=== PATIENT | female | born 2000 | race Caucasian/White ===

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

== ENCOUNTER 2021-10-03 08:28 | Emergency (ER) | payer SELFPAY ==
[2021-10-03 08:37] VITALS: BP 121/69; PULSE 78; RESP 16; TEMP 36.4; O2SAT 100
--- NOTE | 2021-10-03 09:06 | ED.FEMALEGU ---
HPI - Female Genitourinary General Chief complaint: Urogenital-Female Stated complaint: UTI Time Seen by Provider: 10/03/21 09:18 Source: patient and RN notes reviewed Mode of arrival: ambulatory Limitations: no limitations History of Present Illness HPI Narrative: 21-year-old female presents with concern for urinary tract infection. She reports 3-day history of tingling with urination, urine frequency, urine urgency, bilateral low back pain, low abdominal pain. She denies any OTC remedies. She denies body aches, chills, sweats. Reports history of UTI MD elicited complaint: UTI Related Data Allergies Allergy/AdvReac Type Severity Reaction Status Date / Time sulfamethoxazole Allergy Rash Verified 10/03/21 08:46 [From Bactrim] trimethoprim [From Bactrim] Allergy Rash Verified 10/03/21 08:46 Review of Systems Review of Systems: CONSTITUTIONAL: Denies malaise, chills, sweats, or fever. CARDIOVASCULAR: Denies chest pain, palpitations, or edema. RESPIRATORY: Denies cough or dyspnea. GASTROINTESTINAL: De reports lower abdominal pain. Denies nausea, vomiting, diarrhea GENITOURINARY: Reports dysuria, frequency, urgency. Denies hematuria. SKIN: Denies rash or itching. MUSCULOSKELETAL: Reports bilateral low back pain. Denies myalgia. All systems reviewed & are unremarkable except as noted in HPI and below PMFSH Social History Social History (Updated 03/31/19 @ 11:10 by Maricruz Benavides, SENIOR SYSTEMS PROGRAMMER) Smoking status: Current every day smoker Tobacco type: e-cigarettes/vaping Alcohol intake: never Substance use: never Gender identity (if verbalized by the patient): Female Comments At time of signature, agree with nursing past medical, surgical, social and family history. There is no relevant family history pertinent to the presenting complaint Exam Narrative: GENERAL: Well-appearing, well-nourished, and in no acute distress. HEAD: Normocephalic. EYES: PERRLA, conjunctivae clear. NECK: Supple. No lymphadenopathy CHEST: Clear to auscultation. No respiratory distress. HEART: Regular rate and rhythm. ABDOMEN: Mild bilateral lower quadrant tenderness, otherwise soft, nondistended, normal active bowel sounds, no palpable or pulsatile masses, no guarding. No CVA tenderness SKIN: Warm, dry, no rash. NEURO: Alert and oriented x3. PSYCH: Normal mood and affect Course Course Emergency Course: Patient is aware of diagnosis, understands and agrees to treatment plan. Anticipatory guidance given. Patient agrees to follow-up as directed and is aware of reasons to seek care at the emergency department. Portions of this record may have been created with voice recognition software Level of Care: Express Care Visit Vital Signs Vital signs: Vital Signs Temperature 97.5 F L 10/03/21 08:37 Pulse Rate 78 10/03/21 08:37 Respiratory Rate 16 10/03/21 08:37 Blood Pressure 121/69 10/03/21 08:37 Pulse Oximetry 100 10/03/21 08:37 Oxygen Delivery Room Air 10/03/21 08:37 Temperature 97.5 F L 10/03/21 08:37 Pulse Rate 78 10/03/21 08:37 Respiratory Rate 16 10/03/21 08:37 Blood Pressure 121/69 10/03/21 08:37 Pulse Oximetry 100 10/03/21 08:37 Oxygen Delivery Room Air 10/03/21 08:37 Reviewed. MDM - Female Genitourinary MDM Narrative Medical decision making narrative: Exam findings and UA show no acute concerns or changes; patient is non-toxic appearing and is in no distress. Patient is appropriate for outpatient treatment and follow-up. Differential Diagnosis Differential diagnosis: Likely urinary tract infection and cystitis Lab Data Labs: Urine Glucose Trace Reference Range: Negative Urine Bilirubin Negative Reference Range: Negative Urine Ketone Negative Reference Range: Negative Urin
== END 2021-10-03 09:31 | disposition home or self-care (01) ==
PROVIDERS: Emergency Provider Nurse Practitioner
DX: N39.0 Urinary tract infection, site not specified (principal); F17.290 Nicotine dependence, other tobacco product, uncomplicated
CPT/HCPCS: 81003; 87077; 87086; 87186; 99213; G0463

== ENCOUNTER 2022-05-20 12:13 | Emergency (ER) | payer MEDICAID, SELFPAY ==
--- NOTE | 2022-05-20 12:19 | ED.URI ---
HPI - URI/Sore Throat General Chief Complaint: Upper Respiratory Infection Stated Complaint: Sore Throat Time Seen by Provider: 05/20/22 12:20 Source: patient Mode of arrival: ambulatory Limitations: no limitations History of Present Illness HPI Narrative: Jadyn is a 21-year-old female patient presenting to the clinic today with complaints of a sore throat and nasal congestion x2 days. She denies any fever or chills. She has a nonproductive cough. States that she may have strep. No known exposure to anyone with COVID, flu, or strep. MD elicited complaint: cough, sore throat and nasal congestion Related Data Allergies Allergy/AdvReac Type Severity Reaction Status Date / Time sulfamethoxazole Allergy Rash Verified 05/20/22 12:18 [From Bactrim] trimethoprim [From Bactrim] Allergy Rash Verified 05/20/22 12:18 Review of Systems Review of Systems: Pertinent positives per HPI. Patient denies any fever, chills, rash, headache, visual changes, dizziness, shortness of breath, chest pain, palpitations, nausea, vomiting, diarrhea, constipation, abdominal pain, or any urinary issues. [facility] Social History Social History (Updated 03/31/19 @ 11:10 by Maricruz Benavides, SHELL MOLD BONDING MACHINE OPERATOR) Smoking status: Current every day smoker Tobacco type: e-cigarettes/vaping Alcohol intake: never Substance use: never Living arrangements: with family Occupation/Education: student Gender identity (if verbalized by the patient): Female Comments At the time of my signature, I reviewed and agree with the nursing past medical, surgical, social, and family history. There is no relevant family history pertinent to the patient complaint. Exam Narrative: General: Well-developed, well nourished, in no apparent distress Head: Normocephalic, atraumatic Eyes: Pupils equally round and reactive to light bilaterally, EOM intact, sclera and conjunctive clear, no discharge, lids normal Ears: TMs intact and congested, ear canals clear, no drainage, grossly hearing normal. Nose: Nares patent, clear nasal discharge, no inflammation, no sinus tenderness. Mouth: Oral pharynx without lesions or masses, good dentition, MMM. Oropharynx red with bilateral tonsillar enlargement Neck: Supple, trachea midline, mild enlargement of anterior cervical nodes, no thyroid masses or goiter palpable. Cardio: Regular rate and rhythm, s1 and s2 normal, no murmur appreciated. Resp: Clear to auscultation bilaterally, no rhonchi, rales, wheezing or rubs Course Course Emergency Course: Portions of this record may have been created with voice recognition software. Level of Care: Express Care Visit Vital Signs Vital signs: Vital signs reviewed MDM - URI/Sore Throat MDM Narrative Medical decision making narrative: At the time of visit patient is resting comfortably on the exam table. Strep screen was obtained Differential Diagnosis Differential diagnosis: Likely upper respiratory infection, sinusitis, viral infection, influenza, pharyngitis and other (COVID) Discharge Plan Discharge Clinical Impression: Acute streptococcal pharyngitis Patient Disposition: Home, Self-Care Condition: Stable Instructions: Antibiotic Form, Strep Throat (ED) Additional Instructions: Strep screen was positive in the clinic today Take prescription medications only as prescribed-amoxicillin Change your toothbrush in 24 hours after initiation of antibiotic Increase fluids and stay well hydrated Tylenol/motrin for pain/fever Flonase and OTC antihistamines as directed Vicks vapor rub to open sinuses Sinus rinses for congestion Cepacol spray, cough drops, throat lozenges, warm tea with honey/lemon, gargle salt water to soothe throat BRAT diet for diarrhea Clear liquids x 24 hours then advance as tolerated for nausea/vomiting Go to the ED if you develop a worsening in your condition- high fever not controlled by Tylenol or Motrin, dehydration, weakness, let
[2022-05-20 12:20] VITALS: BP 127/94; PULSE 87; RESP 12; TEMP 36.8; O2SAT 99
== END 2022-05-20 12:42 | disposition home or self-care (01) ==
PROVIDERS: Emergency Provider Nurse Practitioner Family
DX: J02.0 Streptococcal pharyngitis (principal); F17.290 Nicotine dependence, other tobacco product, uncomplicated
CPT/HCPCS: 87880; 99213; G0463

== ENCOUNTER 2023-04-13 14:12 | Emergency (ER) | payer OTHER, SELFPAY ==
[2023-04-13 14:29] VITALS: BP 108/70; PULSE 99; RESP 16; TEMP 37.2; O2SAT 100
--- NOTE | 2023-04-13 14:39 | ED.URI ---
HPI - URI/Sore Throat General Chief Complaint: Upper Respiratory Infection Stated Complaint: COVID exposure Time Seen by Provider: 04/13/23 15:09 Source: patient, RN notes reviewed and old records reviewed Mode of arrival: ambulatory Limitations: no limitations History of Present Illness HPI Narrative: 22-year-old female presents to the [facility] with complaints of sinus congestion, runny nose that started on Wednesday. Reports COVID exposure recently Denies fevers. Reports intermittent nausea Last menstrual period started 2 days ago Has taken Tylenol Requesting a work note Related Data Allergies Allergy/AdvReac Type Severity Reaction Status Date / Time sulfamethoxazole Allergy Rash Verified 05/20/22 12:18 [From Bactrim] trimethoprim [From Bactrim] Allergy Rash Verified 05/20/22 12:18 Review of Systems Review of Systems: All systems reviewed & are unremarkable except as noted in HPI and below Constitutional: Constitutional: Reports no additional constitutional complaints Eyes: Eyes: Reports no additional eye complaints ENT: Reports as per HPI Cardiovascular: Cardiovascular: Reports no additional cardiovascular complaints, Denies chest pain and Denies dyspnea Respiratory: Respiratory: Reports no additional respiratory complaints, Denies chest congestion, Denies cough and Denies dyspnea Gastrointestinal: Gastrointestinal: Reports no additional gastrointestinal complaints, Denies abdominal pain, Denies nausea and Denies vomiting Musculoskeletal: Musculoskeletal: Reports no additional musculoskeletal complaints Integumentary/Breasts: Skin/Breast: Reports system reviewed and no additional complaints, except as docu Neurologic: Reports system reviewed and no additional complaints, except as documented Psychiatric: Psychiatric: Reports no additional psychiatric complaints Allergic/Immunologic: Allergic/Immunologic: Reports no additional allergic/immunologic complaints PMFSH Social History Social History Smoking status: Current every day smoker Tobacco type: e-cigarettes/vaping Alcohol intake: never Substance use: never Living arrangements: with family Occupation/Education: student Gender identity (if verbalized by the patient): Female Comments At the time of my signature, I reviewed and agree with the nursing past medical, surgical, social, and family history. There is no relevant family history pertinent to the patient complaint. Exam Const: General: cooperative, healthy appearing, comfortable, no acute distress, well developed, alert and well nourished Nutritional Appearance: well nourished Orientation/consciousness: patient oriented x3 Limitations: no limitations HENMT: Head: normal to inspection Ears: hearing grossly normal bilaterally, external ears normal, TM's normal bilaterally, EAC's normal, mastoids normal and no periauricular adenopathy Face/Nose/Sinus: Normal external nose present, Normal nares present, Normal nasal mucous membranes and turbinates present, normal facial exam and face symmetric Face and sinus: normal facial exam and face symmetric Mouth: Yes Normal oral and palatal mucosa present, Yes lip normal and Yes moist mucous membranes Throat: posterior oropharynx normal, uvula midline and postnasal drainage (Large amounts thick) Eyes: General: appearance normal, both eyes and all related structures Alignment and Position: alignment normal Periorbital: periorbital findings normal Pupils: Equal, round and reactive pupils present EOM: EOMs intact bilaterally Neck: Neck: normal visual inspection, full ROM, no lymphadenopathy and no meningeal signs Chest: Chest palpation & inspection: normal inspection of the chest Resp: Effort & Inspection: normal respiratory effort and able to speak in complete sentences Auscultation: clear to auscultation bilaterally, no crackles, no rales, no rhonchi and no wheezes Cardio: Rate: regula
== END 2023-04-13 15:25 | disposition home or self-care (01) ==
PROVIDERS: Emergency Provider Nurse Practitioner
DX: J06.9 Acute upper respiratory infection, unspecified (principal); R09.82 Postnasal drip; F17.290 Nicotine dependence, other tobacco product, uncomplicated; Z20.822 Contact with and (suspected) exposure to COVID-19
CPT/HCPCS: 87426; 87804; 99213; G0463

== ENCOUNTER 2023-06-30 12:31 | Outpatient (CLI) | payer OTHER, SELFPAY | END 2023-06-30 12:32 | disposition home or self-care (01) | PROVIDERS: Visit Provider Obstetrics & Gynecology | DX: O36.80X9 Pregnancy with inconclusive fetal viability, other fetus (principal); Z3A.00 Weeks of gestation of pregnancy not specified | CPT/HCPCS: 36415; 84702 ==

== ENCOUNTER 2024-02-15 06:25 | Inpatient (IN) | payer OTHER, SELFPAY ==
[2024-02-15] VITALS (126 sets, daily range): BP systolic 101–141; BP diastolic 51–98; PULSE 74–133; TEMP 36.2–36.6; O2SAT 99–100; BMI 32.0
--- OUTSIDE RECORDS SUMMARY | 2024-02-15 06:46 | XMS_ITS | Continuity of Care Document ---
Author Organization [facility] Address [address] [place] [address] Assessment No assessment recorded. Plan of Treatment Reminders Order Date Submit Date Provider Last Modified By Organization Details Last Modified Time Details Appointments INDUCTION 2023 07:00A M LINDA DUNN MD Not available Not available Not available Lab None recorded. Referral None recorded. Procedures None recorded. Surgeries None recorded. Imaging US, obstetric , follow-up 2023 024 [email or web address] [facility], [address], [place], [address], 02/08/2024 21:47:15 Medication Orders None recorded. Patient TargetsNo targets recorded. Patient InstructionsNo instructions recorded. Reason for Referral None Reported. Results Created Date Observation Date Name Description Value Unit Range Abnormal Flag Note LastModifiedBy Organization Detail LastModifiedTime 08/09/19 24 08/09/2023 US, obste tric, nucha l trans lucen cy No observ ation record ed. [email or web address] [facility] [address], [place], [address], 08/09/2023 13:09:26 08/09/19 24 08/09/2023 US, obste tric, nucha l trans lucen cy No observ ation record ed. ZULEYKA [facility] [address], [place], [address], 08/11/2023 08:08:19 10/11/19 24 10/11/2023 US, obste tric, 2nd or 3rd trime ster No observ ation record ed. [email or web address] [facility] [address], [place], [address], 10/11/2023 12:59:17 10/11/19 24 10/11/2023 US, obste tric, 2nd or 3rd trime ster No observ ation record ed. [email or web address] [address] [address], [place], [address], 10/11/2023 19:52:11 11/12/19 24 11/12/2023 US, obste tric, follo w-up No observ ation record ed. [email or web address] [facility] [address], [place], [address], 11/12/2023 16:47:39 11/12/19 24 11/12/2023 US, obste tric, follo w-up No observ ation record ed. ZULEYKA [facility] [address], [place], [address], 11/15/2023 12:08:32 12/09/19 24 12/09/2023 US, obste tric, follo w-up No observ ation record ed. [email or web address] [facility] [address], [place], [address], 12/09/2023 12:55:34 12/09/19 24 12/09/2023 US, obste tric, follo w-up No observ ation record ed. ZULEYKA [address] [address], [place], [address], 12/10/2023 10:24:16 01/04/2001/04/2024 US, obste tric, follo w-up No observ ation record ed. [email or web address] [facility] [address], [place], [address], 01/04/2024 13:22:53 01/04/2001/04/2024 US, obste tric, follo w-up No observ ation record ed. [email or web address] [address] [address], [place], [address], 01/10/2024 12:19:04 02/08/20 24 02/08/2024 US, obste tric, follo w-up No observ ation record ed. [email or web address] [facility] [address], [place], [address], 02/08/2024 13:03:42 02/08/20 24 02/08/2024 US, obste tric, follo w-up No observ ation record ed. [email or web address] [address] [address], [place], [address], 02/08/2024 21:47:09 Result Notes None recorded. Problems Name Problem SNOMED Code Status Onset Date Resolution Date Notes Provider Name and Address Organization Details Recorded Time Mixed anxiety and depressive disorder 423449504 Active 2023 Amber christensen, [facility] 4 10:43:00 88374054 Active 2023 Amber christensen, [facility] 4 10:43:50 Mixed anxiety and depressive disorder 458670287 Active 2023 Amber christensen, [facility] 4 10:43:00 Marginal insertion of umbilical cord 04235509 Active Dameon Yepez MD [address], [place], [address], [facility] 4 18:24:08 Anemia 564837434 Active 2023 1 tab slowfe daily Pablo christensen, [facility] 4 09:57:31 Problem Notes None recorded. Procedures Surgical History Date Name Laterality Status Provider Name and Address Organization Details Recorded Time 05/18/2023 Date of Last Pap Smear completed Radha Ward [facility] 07/12/2023 10:17:42 Imaging Results Imaging Date Name Status LastModified by Organiz ation Details LastModified Time 02/08/2024 US, obstetric, follow-up completed [email or web address] [facility] [address], [place], [address], 02/08/2024 13:03:42 02/08/2024 US, obstetric, follow-up completed [email or web address] [address], [place], [address], 02/08/2024 21:47:09 Procedure Notes None recorded. Medical Equipment None Reported. Allergies Allergen ID Allergen Name Allergen Category Reaction Reaction Severity Criticality Documentation Date Start Date Code Code System Note Provider Name and Address Organization Details Recorded Time 03291 Bactrim medicatio n rash moderate Not available 07/12/2023 05233 9 [facility], [facility] 10:17:34 Medications Name Sig Start Date Stop Date Status Note LastModified by Organization Details LastModified Time Prescript ion - Prior Authoriza tion Request active Not Available Not Available Not Available trazodone 50 mg tablet take 1 tablet by oral route 3 times every day after meals 07/11 completed Prescrib ed Elsewher e: Yes Loca tion: [facility] odify By: nadege Tobias ncounter DateTime : 04/27/19 18 10:45:00 AM Not Available Not Available Not Available potassium gluconate 2.5 mEq tablet 07/11 completed Prescrib ed Elsewher e: Yes Loca tion: [facility] odify By: lin Tobias ncounter DateTime : 02/12/20 17 02:30:00 PM Not Available Not Available Not Available ibuprofen 800 mg tablet TAKE 1 TABLET BY MOUTH EVERY 8 TO 10 hours NEEDED 07/11 completed Not Available Not Available Not Available fluconazo le 150 mg tablet active Not Available Not Available Not Available Claritin 10 mg tablet take 1 tablet by oral route every day 07/11 completed Prescrib ed Elsewher e: Yes Loca tion: Dusty to[facility] odify By: lin ansari DateTime : 02/12/20 17 02:30:00 PM Not Available Not Available Not Available phenazopy ridine 200 mg tablet TAKE 1 TABLET BY MOUTH EVERY 8 HOURS NEEDED 07/11 completed Not Available Not Available Not Available clotrimaz ole 1 % vaginal cream insert 1 applicat orful vaginall y NIGHTLY FOR 7 DAYS 08/08 completed Not Available Not Available Not Available metronida zole 500 mg tablet TAKE ONE TABLET BY MOUTH TWICE DAILY 07/11 completed Not Available Not Available Not Available ondansetr on 8 mg disintegr ating tablet active Not Available Not Available Not Available Ritalin 10 mg tablet take 1 tablet by oral route 2 times every day 07/11 completed Prescrib ed Elsewher e: Yes Loca tion: Dusty [facility] odify By: lin ansari DateTime : 02/12/20 17 02:30:00 PM Not Available Not Available Not Available cephalexi n 500 mg capsule TAKE ONE CAPSULE BY MOUTH TWICE DAILY FOR 7 DAYS 01/20 completed Not Available Not Available Not Available clotrimaz ole-betam ethasone 1 %-0.05 % topical cream APPLY TO THE AFFECTED AREA(S) TWICE DAILY FOR 2 WEEKS 11/11 completed Not Available Not Available Not Available ondansetr on 4 mg disintegr ating tablet dissolve one TABLET UNDER THE TONGUE EVERY 6 HOURS NEEDED 07/11 completed Not Available Not Available Not Available sertralin e 50 mg tablet active Not Available Not Available Not Available nitrofura ntoin monohydra te/macroc rystals 100 mg capsule Take 1 capsule every day by oral route. active Not Available Not Available No t Available biotin 1 mg tablet 07/11 completed Prescrib ed Elsewher e: Yes Loca [facility]: [facility] odify By: lin ansari DateTime : 02/12/20 17 02:30:00 PM Not Available Not Available Not Available Iron (ferrous sulfate) 2023 active Not Available Not Available Not Avai lable Zyrtec 10 mg capsule active Not Available Not Available Not Available One A Day Women's DHA active Not Available Not Available Not Available 28 mg iron-800 mcg tablet TAKE 1 TABLET BY MOUTH DAILY 07/11 completed Not Available Not Available Not Available Vitals Date Recorded Body height Body mass index (BMI) Body weight Systolic blood pressure Diastolic blood pressure Provider Name and Address Organization Details Last Updated DateTime 02/08/2024 161.29 cm 30.3 kg/m2 29092.07 g 116 mm[Hg] 76 mm[Hg] Tasha Abdalla [facility] 10:39:21 Social History Question Answer Notes LastModified by Organizat ion Details LastModified Time Tobacco Smoking Status Current Every Day Smoker Radha Ed christensen, [facility] 07/12/2023 10:31:12 What Is Your Level Of Alcohol Consumption? None Information not available 07/12/2023 If You Are , What Was Your Level Of Alcohol Consumption Prior To ? Occasional [email or web address] Information not available 10/11/2023 How Many Years Have You Consumed Alcohol? 2 Information not available 07/12/2023 Are You Blind Or Do You Have Difficulty Seeing? No Information not available 07/12/2023 What Is Your Level Of Caffeine Consumption? None Information not available 07/12/2023 How Much Tobacco Do You Chew? None Information not available 07/12/2023 In The 14 Days Before Symptom Onset, Have You Had Close Contact With A Laboratory-confir med COVID-19 While That Case Was Ill? No Information not available 07/12/2023 In The 14 Days Before Symptom Onset, Have You Had Close Contact With A Person Who Is Under Investigation For COVID-19 While That Person Was Ill? No Information not available 07/12/2023 Have You Been To An Area Known To Be High Risk For COVID-19? No Information not available 07/12/2023 Are You Deaf Or Do You Have Serious Difficulty Hearing? No Information not available 07/12/2023 What Type Of Diet Are You Following? REGULAR Information not available 07/12/2023 What Is The Highest Grade Or Level Of School You Have Completed Or The Highest Degree You Have Received? [id number] Information not available 07/12/2023 What Is Your Occupation? Information not available 07/12/2023 Are There Any Guns Present In Your Home? No Information not available 07/12/2023 Do You Use Protection During Sex? No Information not available 07/12/2023 Do You Use Your Seat Belt Or Car Seat Routinely? Yes Information not available 07/12/2023 Do You Have Smoke And Carbon Monoxide Detectors In Your Home? Yes Information not available 07/12/2023 At What Age Did You Start Smoking Tobacco? 17 Information not available 07/12/2023 How Much Tobacco Do You Smoke? 1 PPW Information not available 09/06/2023 Do You Feel Stressed (tense, Restless, Nervous, Or Anxious, Or Unable To Sleep At Night)? [id number] Information not available 07/12/2023 Do You Use Any Illicit Or Recreational Drugs? No Information not available 07/12/2023 Do You Use Sunscreen Routinely? Yes Information not available 07/12/2023 How Many Years Have You Smoked Tobacco? 7 Information not available 07/12/2023 Have You Used IV Drugs? No Information not available 07/12/2023 Sex: Unknown Functional Status Question Answer Note LastModified by Organizat ion Details LastModified Time Do you have difficulty walking or climbing stairs? No Information not available 07/12/2023 Are you able to walk? YESWOREST Information not available 07/12/2023 Are you able to care for yourself? Yes Information not available 07/12/2023 Do you have difficulty dressing or bathing? No Information not available 07/12/2023 What is your exercise level? Occasional Information not available 07/12/2023 Mental Status None recorded. Family History Relationship Description Onset Age of this Age Resolved Age Notes LastModified by Organization Details LastModified Time Maternal Grandmother Anemia Not available 2023 10:30:10 Father Diabetes mellitus Not available 2023 10:30:17 Father Hypertensive disorder Not available 2023 10:30:33 Father Heart disease CHF [email or web address] Not available 09/05 15:57:10 Father Hypercholest erolemia [email or web address] Not available 09/05 15:57:24 Maternal Grandfather Hypertensive disorder Not available 2023 10:30:33 Maternal Grandfather Malignant tumor of prostate [email or web address] Not available 2023 09:56:27 Maternal Grandfather Hypercholest erolemia [email or web address] Not available 09/05 15:57:24 Medical History Condition Response Allergies (Food, seasonal, environmental ) Y Other N Breast Cancer N Drug/Latex Allergies/Reactions N Blood Transfusion N Dermatologic Disorders N Lung Disease N Defects or Inherited Disease N Breast Problem N Gestational Diabetes N Hematologic disorders N Anesthesia Complications N History of STI Y Deep Vein Thrombosis N Polycystic ovary syndrome N Anxiety Disorder Y Autoimmune disease N Arthritis N Infertility N Polyps N Acid Reflux (GERD) N History of abnormal pap N Cancer N Stroke N Varicosities N Neurologic/Epilepsy N Endometriosis N High Cholesterol N Headaches N Fibromyalgia N Kidney Disease N Heart Problems N Kidney or Bladder Problems N Thyroid Problems N GI Problems N Eating Disorder N Anemia N Art (IVF or FET) N Psychiatric Illness N Ovarian Cancer N Diabetes N Pulmonary (TB, Asthma) N Hepatitis/Liver Disease N No Past Medical History N Eczema N Urinary Tract Infection N Abuse/Domestic Violence N Asthma N Trauma/Violence N Depression/ depression Y Heart Disease N Pre-Eclampsia N Hypertension N Osteoporosis N Thrombophilias N Gynecological History Statement/Question Response Date of Last Mammogram Date of LMP 05/15/2023 On BCP's at Conception? N N Was last menstrual period normal Y STIs/STDs Y HPV Vaccine N Duration of Flow (days) 5 Current Control Method Date of control 08/29/2022 Frequency of Cycle (Q days) 28 Sexually Active? Y N/A Menses Monthly Y Date of DEXA bone scan Age of first menstrual cycle 15 Date of Last Pap Smear 05/18/2023 Sexual Problems? N LMP Approximate N Obstetrics History GPAL:G 1 P 0 0 0 0 Type Value Living 0 Total 1 Past Encounters Encounter ID Performer Location Encounter Start Date Encounter Closed Date Diagnosis/Indication Diagnosis SNOMED-CT Code Diagnosis ICD10 Code [id number] Dameon Yepez MD [facility] [address] [address] 01/21/2024 16:07:49 01/25/2024 01:13:38 Pain in pelvis 01357739 R10.2 Urinary tr act infectious disease 54717021 N39.0 [id number] LINDA DUNN MD [facility] [address] [address] 01/25/2024 16:01:04 01/25/2024 16:48:54 Mixed anxiety and depressive disorder 639175774 F41.8 Anemia of 2732003 O99.019 Gestation period, 36 weeks 14813947 Z3A.36 [id number] LINDA DUNN MD [facility] [address],[place] [address] 01/31/2024 15:08:20 01/31/2024 16:37:00 Marginal insertion of umbilical cord 77561363 O43.129 Mixed anxi ety and depressive disorder 050607380 F41.8 Gestation period, 37 weeks 35588297 Z3A.37 [id number] Pina De La O [facility] [address],[place] [address] 02/08/2024 09:56:19 02/08/2024 10:43:10 Placental condition affecting management of mother 022891278 O43.103 Z3A.38 [id number] LINDA DUNN MD [facility] [address],[place] [address] 02/08/2024 09:56:41 02/08/2024 11:00:21 Mixed anxiety and depressive disorder 071779233 F41.8 Anemia of 2733 2003 O99.019 Marginal i nsertion of umbilical cord 00235670 O43.129 Gestation period, 38 weeks 04657738 Z3A.38 Health Concerns Section Related Observation LastModified by Organization Detai ls LastModified Time None Recorded Concern Status LastModified by Organization Details LastModified Time None Recorded Payers Encounter Date Sequence Insurance Name Policy Number Policy Mcdonald Covered Member ID Mcdonald Member ID Guarantor Name 02/08/2024 1 [facility] - DOS ON OR AFTER 20 (MEDICAID REPLACEMENT - HMO) Alma Vinson [id number] Alma Vinson OBGyn Episode Ob Episode Information Episode Created Date Number of Fetuses Patient Bloodtype Patient rh Status Prepregnancy Weight lbs Domestic Partner Domestic Partner Phone Father Name 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 Status 08/09/19 24 1 O Positive [address] OPEN Fetus Data First Name Last Name Admitted to NICU Weight (g) Sex Living Outcome Pediatric Complications Fetus ID Race Codes Race Delivery Type [id number] Problems Problem Notes Problem Name Start Date End Date Resolution Snomed Code Not e Marginal insertion of umbilical cord 11678234 Mixed anxiety and depressive disorder 10/11/2023 812939536 Anemia 12/13/2023 063021990 1 tab slo wfe daily Justin Calculation Initial Justin Date Initial Exam Date Initial Exam Provider Initial Ultrasound Date Last Menstrual Period Date Ultra Sound Weeks Gestation 02/19/2024 08/09/2023 07/12/2023 05/15/2023 8 Eighteen To Twenty Week Justin Update Ultra Sound Date Fundal Height At Umbil Quickening Date Ultra Sound Latest Weeks Gestation Final Justin Confirmed By Final Justin Confirmed Date Final Justin Date Ultra Sound Latest Days Gestation 0 [email or web address] 08/09/2023 02/19/20 24 0 Pre- Flowsheet Flowsheet Date 08/09/2023 Hagan Score Blood Edema Fundus Height Fundus Units Glucose Ketones Leukocytes Nitrite Labor Signs Protein Cervic Dilation Cervic Effacement Cervic Station Type Weight in lbs BP Diastolic BP Location Tested BP Systolic BP Type 75 L arm 102 sitting Fetus Heart Rate Present A 157 Fetus Movement Comments this patient is a 23-year-ol d multiparous female at 12 weeks' gestation who presents for initial care. She has a history of term vaginal births. Her medical, surgical, obstetric history is unremarkable. She is vaccinated. She was given precautions recommendations for . We talked about vaccines in . Talked about care in detail. She is having genetic testing. She had a normal 12 week ultrasound. To begin routine care. Depression anxiety, meds prescribe Flowsheet Date 08/09/2023 Hagan Score Blood Edema Fundus Height Fundus Units Glucose Ketones Leukocytes Nitrite Labor Signs Protein Cervic Dilation Cervic Effacement Cervic Station Type Weight in lbs BP Diastolic BP Location Tested BP Systolic BP Type Fetus Heart Rate Present Fetus Movement Comments Flowsheet Date 09/06/2023 Hagan Score Blood Edema Fundus Height Fundus Units Glucose Ketones Leukocytes Nitrite Labor Signs Protein Cervic Dilation Cervic Effacement Cervic Station none Type Weight in lbs BP Diastolic BP Location Tested BP Systolic BP Type 68 111 Fetus Heart Rate Present Fetus Movement A No Comments Patient is having some disch arge , itching, pain with urination and nausea. Treated for vulvovaginitis. Nausea associated with SSRI. To treat with Zofran. Discussed discontinuation. I encouraged her to stay on the meds. Usually this is a symptom that resolved. Asked her not to discontinue without discussing it. Flowsheet Date 10/11/2023 Hagan Score Blood Edema Fundus Height Fundus Units Glucose Ketones Leukocytes Nitrite Labor Signs Protein Cervic Dilation Cervic Effacement Cervic Station Type Weight in lbs BP Diastolic BP Location Tested BP Systolic BP Type Fetus Heart Rate Present Fetus Movement Comments Flowsheet Date 10/11/2023 Hagan Score Blood Edema Fundus Height Fundus Units Glucose Ketones Leukocytes Nitrite Labor Signs Protein Cervic Dilation Cervic Effacement Cervic Station Type Weight in lbs BP Diastolic BP Location Tested BP Systolic BP Type 73 109 Fetus Heart Rate Present Fetus Movement A Yes Comments no complaints, no problems, routine care, no contractions, no vaginal bleeding, no loss of fluid, no cramping marginal cord insertion, serial growth ultrasounds going forward Flowsheet Date 11/12/2023 Hagan Score Blood Edema Fundus Height Fundus Units Glucose Ketones Leukocytes Nitrite Labor Signs Protein Cervic Dilation Cervic Effacement Cervic Station Type Weight in lbs BP Diastolic BP Location Tested BP Systolic BP Type Fetus Heart Rate Present Fetus Movement Comments Flowsheet Date 11/12/2023 Hagan Score Blood Edema Fundus Height Fundus Units Glucose Ketones Leukocytes Nitrite Labor Signs Protein Cervic Dilation Cervic Effacement Cervic Station neg none 26 cm none trace Type Weight in lbs BP Diastolic BP Location Tested BP Systolic BP Type 69 R arm 107 sitting Fetus Heart Rate Present A 144 Fetus Movement A Yes Comments no complaints, no problems, routine care, no contractions, no vaginal bleeding, no loss of fluid, no cramping. reports some urgency and some frequency along with this area. To treat for urinary tract infection. Positive urine dip. Good growth ultrasound today Flowsheet Date 12/09/2023 Hagan Score Blood Edema Fundus Height Fundus Units Glucose Ketones Leukocytes Nitrite Labor Signs Protein Cervic Dilation Cervic Effacement Cervic Station Type Weight in lbs BP Diastolic BP Location Tested BP Systolic BP Type Fetus Heart Rate Present Fetus Movement Comments Flowsheet Date 12/09/2023 Hagan Score Blood Edema Fundus Height Fundus Units Glucose Ketones Leukocytes Nitrite Labor Signs Protein Cervic Dilation Cervic Effacement Cervic Station 29 cm Type Weight in lbs BP Diastolic BP Location Tested BP Systolic BP Type 73 L arm 105 sitting Fetus Heart Rate Present A 145 Fetus Movement A Yes Comments no complaints, no problems, routine care, no contractions, no vaginal bleeding, no loss of fluid, no cramping - Normal growth ultrasound Flowsheet Date 12/24/2023 Hagan Score Blood Edema Fundus Height Fundus Units Glucose Ketones Leukocytes Nitrite Labor Signs Protein Cervic Dilation Cervic Effacement Cervic Station Type Weight in lbs BP Diastolic BP Location Tested BP Systolic BP Type 75 L arm 110 sitting Fetus Heart Rate Present A 134 Fetus Movement A Yes Comments no complaints, no problems, routine care, no contractions, no vaginal bleeding, no loss of fluid, no cramping Flowsheet Date 01/04/2024 Hagan Score Blood Edema Fundus Height Fundus Units Glucose Ketones Leukocytes Nitrite Labor Signs Protein Cervic Dilation Cervic Effacement Cervic Station Type Weight in lbs BP Diastolic BP Location Tested BP Systolic BP Type Fetus Heart Rate Present Fetus Movement Comments Flowsheet Date 01/05/2024 Hagan Score Blood Edema Fundus Height Fundus Units Glucose Ketones Leukocytes Nitrite Labor Signs Protein Cervic Dilation Cervic Effacement Cervic Station 33 cm Type Weight in lbs BP Diastolic BP Location Tested BP Systolic BP Type 77 L arm 115 sitting Fetus Heart Rate Present A 145 Fetus Movement A Yes Comments reports problems with sciati c nerve pain, given recommendations, routine care, no contractions, no vaginal bleeding, no loss of fluid, no cramping Flowsheet Date 01/21/2024 Hagan Score Blood Edema Fundus Height Fundus Units Glucose Ketones Leukocytes Nitrite Labor Signs Protein Cervic Dilation Cervic Effacement Cervic Station Type Weight in lbs BP Diastolic BP Location Tested BP Systolic BP Type 76 L arm 116 sitting Fetus Heart Rate Present A 144 Fetus Movement A Yes Comments no complaints, no problems, routine care, no contractions, no vaginal bleeding, no loss of fluid, no cramping Infection. Treat acutely at this time. Then 2 treat with suppressive therapy through the end of the . Described the treatment plan. Described the medications. She understands the risks, benefits, and alternatives. We discussed precautions and instructions. Flowsheet Date 01/25/2024 Hagan Score Blood Edema Fundus Height Fundus Units Glucose Ketones Leukocytes Nitrite Labor Signs Protein Cervic Dilation Cervic Effacement Cervic Station neg none none trace 1cm 50% -3 Type Weight in lbs BP Diastolic BP Location Tested BP Systolic BP Type 74 L arm 116 sitting Fetus Heart Rate Present A 140 Fetus Movement A Yes Comments Patient states has been cram ping all day. No strong contractions, LOF or VB. Scheduled for induction 02/13. GBS collected, SVE performed. Labor precautions reviewed. Discussed preadmission. RTC 1 week. Flowsheet Date 01/31/2024 Hagan Score Blood Edema Fundus Height Fundus Units Glucose Ketones Leukocytes Nitrite Labor Signs Protein Cervic Dilation Cervic Effacement Cervic Station neg none none trace Type Weight in lbs BP Diastolic BP Location Tested BP Systolic BP Type 69 L arm 102 sitting Fetus Heart Rate Present Fetus Movement A Yes Comments Patient c/o slight pains, an d swelling in ankles. Had an episode of diarrhea this morning. Inconsistent contractions, no bleeding or LOF. Good movement. EIL scheduled. RTC 1 week. Flowsheet Date 02/08/2024 Hagan Score Blood Edema Fundus Height Fundus Units Glucose Ketones Leukocytes Nitrite Labor Signs Protein Cervic Dilation Cervic Effacement Cervic Station Type Weight in lbs BP Diastolic BP Location Tested BP Systolic BP Type Fetus Heart Rate Present Fetus Movement Comments Flowsheet Date 02/08/2024 Hagan Score Blood Edema Fundus Height Fundus Units Glucose Ketones Leukocytes Nitrite Labor Signs Protein Cervic Dilation Cervic Effacement Cervic Station neg none Type Weight in lbs BP Diastolic BP Location Tested BP Systolic BP Type 76 L arm 116 sitting Fetus Heart Rate Present A Present Fetus Movement A Yes Comments Patient c/o of swelling in t he ankles and lower pressure/pain. No bleeding. Good movement. EFW 32%, normal NAIF. Labor precautions reviewed. EIL scheduled 02/13. Menstrual History Last Menstrual Date Menses Monthly On Bcp Conception Prior Menses Frequency Hcg Plus Date Menarche Onset Age 0305/15/2023 Genetic Screening And Infection History Question Response Note Mental Retardation/Autism false Patient's Age Will Be 35 Years Or Older At Estim ated Date of Delivery false Thalassemia (Thai, Guamanian, Mediterranean, Or Background): MCV < 80 false Neural Tube Defect (Meningomyelocele, Spina Bifi da, Or Anencephaly) false Congenital Heart Defect false Down Syndrome false Luan-Sachs (eg, Shinto, Cajun, Finnish-[place]) f alse Joni Disease false Sickle Cell Disease Or Trait () false Hemophilia Or Other Blood Disorders false Muscular Dystrophy false Cystic Fibrosis false Ballard's Chorea false Intellectual Disability/Autism false If Yes, Was Person Tested For Fragile X? false Other Inherited Genetic Or Chromosomal Disorder false Maternal Metabolic Disorder (eg, Type 1 Diabetes , PKU) false Patient Or Baby's Father Had A Child With Defects Not Listed Above false Recurrent Loss, Or A Stillbirth false Medications (including Suppl ements, Vitamins, Herbs, OTC Drugs), Illicit/Recreational Drugs, Alcohol false If Yes, Agent(s) And Strength/Dosage false Any Other Genetic History false Live With Someone With TB Or Exposed To TB false Patient Or Partner Has History Of Genital Herpes false Rash Or Viral Illness Since Last Menstrual Perio d false History Of STD, Gonorrhea, Chlamydia, HPV, Syphi lis false Other Infection History false History of HIV false History of Hepatitis false Prior GBS-infected child false Hemoglobinopathy Or Carrier false Other Structural Defect false Recent Travel History Outside of Country false Delivery Information Delivery Date Delivery Type Labor Anesthesia Weeks Gestation Incision Type Labor Labor Length Hrs Delivered By Post Complications Tubal Sterilization Discharge Date Comments Discharge Information Feeding Method Contraceptive Method Maternal HG B and HCT Levels
--- OUTSIDE RECORDS SUMMARY | 2024-02-15 06:46 | XMS_ITS | Data Portability ---
Author Organization [facility] Address [address] [place] [address] Assessment Encounter Date Assessment Date Assessment LastModified by Organization Details LastModified Time 01/21/2024 01/21/2024 Patient is ___weeks . Discussed plan. [email or web address] Not available 01/21/2024 16:16:35 Plan of Treatment Reminders Order Date Submit Date Provider Last Modified By Organization Details Last Modified Time Details Appointments INDUCTION 2023 07:00A June DUNN MD Not available Not available Not available Lab urinalysi s, dipstick 2023 024 [email or web address] [address], [place], [address], 01/21/2024 16:29:17 Referral None recorded. Procedures None recorded. Surgeries None recorded. Imaging US, obstetric , follow-up 2023 024 [email or web address] [facility] [address], [place], [address], 02/08/2024 21:47:15 Medication Orders Macrobid 100 mg capsule 2023 024 [facility], [address] [place], [address], 01/21/2024 17:00:53 Macrobid 100 mg capsule 2023 024 [facility], [address] [place], [address], 01/21/2024 17:00:52 Patient TargetsNo targets recorded. Patient InstructionsNo instructions recorded. Reason for Referral None Reported. Results Created Date Observation Date Name Description Value Unit Range Abnormal Flag Note LastModifiedBy Organization Detail LastModifiedTime 01/21/20 24 01/21/2024 CULTU RE: URINE result report SEE RESULT S BELOW Test: Cultu re: Urine Speci men Sourc e: Urine - Clean Catch Speci men Type: Urine Speci men Date: 01/20 1556 Resul t Date: 01/22 0608 Resul t Statu s: Final resul t Abnor mal: No Resul ting Lab: [facility] [address] [facility] [address] Tel: CULTU RE ----- ----- ----- --- No growt h in 1 day (dete ction level of 10,00 0 colon ies / ml.) Not Available [facility] (Lab) [address], [place], [address], 01/23/2024 07:11:57 01/21/20 24 01/21/2024 urina lysis , dipst ick Leukocytes ++ Not Available [facility] [address], [place], [address], 01/21/2024 16:28:23 01/21/20 24 01/21/2024 urina lysis , dipst ick Protein + Not Available [facility] [address], [place], [address], 01/21/2024 16:28:23 01/21/20 24 01/21/2024 urina lysis , dipst ick pH 5 Not Available [facility] [address], [place], [address], 01/21/2024 16:28:23 01/21/20 24 01/21/2024 urina lysis , dipst ick Blood ++ Not Available [facility] [address], [place], [address], 01/21/2024 16:28:23 01/21/20 24 01/21/2024 urina lysis , dipst ick Specific Lutz 1.025 Not Available Chrissie dar [address], [place], [address], 01/21/2024 16:28:23 01/25/20 24 01/25/2024 CULTU RE: GROUP B STREP SCREE N, REFLE X SUSCE PTIBI LITY result report SEE RESULT S BELOW Test: Cultu re: Group B Strep , Refle x Susce ptibi lity ([facility]/ [facility] ) Speci men Sourc e: Vagin a/Rec ladonna Speci men Type: Vagin al/Re ctal Speci men Date: 01/24 1556 Resul t Date: 01/27 1403 Resul t Statu s: Final resul t Abnor mal: No Resul ting Lab: [facility] [address] [facility] [address] Tel: CULTU RE ----- ----- ----- --- No Group B strep isola keyon at 2 days (tank ctive broth enhan cemen t) Not Available [facility] (Lab) [address] [facility], [place], [address], 01/28/2024 15:11:10 01/04/20 24 01/04/2024 US, obste tric, follo w-up No observ ation record ed. [email or web address] [facility] [address], [place], [address], 01/04/2024 13:22:53 01/04/20 24 01/04/2024 US, obste tric, follo w-up No observ ation record ed. [email or web address] [facility] [address], [place], [address], 01/10/2024 12:19:04 12/03/20 24 02/08/2024 US, obste tric, follo w-up No observ ation record ed. [email or web address] [facility] [address], [place], [address], 02/08/2024 13:03:42 02/08/20 24 02/08/2024 US, obste tric, follo w-up No observ ation record ed. [email or web address] [facility] [address], [place], [address], 02/08/2024 21:47:09 Result Notes None recorded. Problems Name Problem SNOMED Code Status Onset Date Resolution Date Notes Provider Name and Address Organization Details Recorded Time Mixed anxiety and depressive disorder 932658422 Active 2023 Amber christensen, [facility] 4 10:43:00 78165193 Active 2023 Amber christensen, [facility] 4 10:43:50 Mixed anxiety and depressive disorder 147221953 Active 2023 Amber christensen, [facility] 4 10:43:00 Marginal insertion of umbilical cord 24437831 Active Dameon Yepez MD [address], [place], [address], [facility] 4 18:24:08 Anemia 169399255 Active 2023 1 tab slowfe daily Pablo christensen, [facility] 4 09:57:31 Problem Notes None recorded. Procedures Surgical History Date Name Laterality Status Provider Name and Address Organization Details Recorded Time 05/18/2023 Date of Last Pap Smear completed Radha Ward [facility] 07/12/2023 10:17:42 Imaging Results Imaging Date Name Status LastModified by [facility] Details LastModified Time 01/04/2024 US, obstetric, follow-up completed [email or web address] [facility] [address], [place], [address], 01/04/2024 13:22:53 01/04/2024 US, obstetric, follow-up completed [email or web address] [facility] [address], [place], [address], 01/10/2024 12:19:04 02/08/2024 US, obstetric, follow-up completed [email or web address] [facility] [address], [place], [address], 02/08/2024 13:03:42 02/08/2024 US, obstetric, follow-up completed [email or web address] [facility] [address] [place], [address], 02/08/2024 21:47:09 Procedure Notes None recorded. Medical Equipment None Reported. Allergies Allergen ID Allergen Name Allergen Category Reaction Reaction Severity Criticality Documentation Date Start Date Code Code System Note Provider Name and Address Organization Details Recorded Time 88671 Bactrim medicatio n rash moderate Not available 07/12/2023 43394 9 RxNorm Radha [place], [place] - [facility] 4 10:17:34 Medications Name Sig Start Date Stop Date Status Note LastModified by Organization Details LastModified Time Prescript ion - Prior Authoriza tion Request active Not Available Not Available Not Available trazodone 50 mg tablet take 1 tablet by oral route 3 times every day after meals 07/11 completed Prescrib ed Elsewher e: Yes [facility] By: nadege pérezunter DateTime : 04/27/19 18 10:45:00 AM Not Available Not Available Not Available potassium gluconate 2.5 mEq tablet 07/11 completed Prescrib ed Elsewher e: Yes [facility] By: lin Lopez ncounter DateTime : 02/12/20 17 02:30:00 PM [...] ed Elsewher e: Yes Loca tion: [facility] odify By: lin ansari DateTime : [...] ed Elsewher e: Yes Loca tion: [facility] odify By: lin ansari DateTime : [...] ed Elsewher e: Yes Loca tion: [facility] odify By: lin ansari DateTime : 02/12/20 02:30:00 PM Not Available Not Available Not [...] and Address Organization Details Last Updated DateTime 01/21/2024 161.29 cm 29.8 kg/m2 74965.3 g 116 mm[Hg] 76 mm[Hg] Sarah Turner [facility] 4 16:17:44 Date Recorded Body height Body mass index (BMI) Body weight Systolic blood pressure Diastolic blood pressure Provider Name and Address Organization Details Last Updated DateTime 01/25/2024 161.29 cm 30.2 kg/m2 89614.48 g 116 mm[Hg] 74 mm[Hg] Tasha [facility] 4 16:11:08 Date Recorded Body height Body mass index (BMI) Body weight Systolic blood pressure Diastolic blood pressure Provider Name and Address Organization Details Last Updated DateTime 01/31/2024 161.29 cm 30.2 kg/m2 88778.48 g 102 mm[Hg] 69 mm[Hg] Tasha [facility] 4 15:51:50 Date Recorded Body height Body mass index (BMI) Body weight Systolic blood pressure Diastolic blood pressure Provider Name and Address Organization Details Last Updated DateTime 02/08/2024 161.29 cm 30.3 kg/m2 13828.07 g 116 mm[Hg] 76 mm[Hg] Tasha [facility] 4 10:39:21 Social History Question Answer Notes LastModified by Organizat ion Details LastModified Time Tobacco Smoking Status Current Every Day Smoker [facility] 07/12/2023 10:31:12 What Is Your Level Of Alcohol Consumption? None Information not available 07/12/2023 If You Are , What Was Your Level Of Alcohol Consumption Prior To ? Occasional [email or web address] Information not available 10/11/2023 How Many Years [...] Or The Highest Degree You Have Received? [id number] Information not available 07/12/2023 What Is Your [...] Much Tobacco Do You Smoke? 1 PPW [email or web address] Information not available 09/06/2023 Do You Feel Stressed (tense, Restless, Nervous, Or Anxious, Or Unable To Sleep At Night)? [id number] Information not available 07/12/2023 Do You Use [...] available 2023 10:30:33 Father Heart disease CHF [email or web address] Not available 09/05 15:57:10 Father Hypercholest erolemia [email or web address] Not available 09/05 15:57:24 Maternal Grandfather Hypertensive disorder Not available 2023 10:30:33 Maternal Grandfather Malignant tumor of prostate [email or web address] Not available 2023 09:56:27 Maternal Grandfather Hypercholest erolemia [email or web address] Not available 09/05 15:57:24 Medical History Condition Response Allergies (Food, seasonal, environmental ) Y Other N Breast Cancer N Drug/Latex Allergies/Reactions N Blood Transfusion N Lung Disease N Dermatologic Disorders N Defects or Inherited Disease N Breast [...] Diagnosis/Indication Diagnosis SNOMED-CT Code Diagnosis ICD10 Code [id number] Pina De La O [facility] [address] [address] 07/12/2023 09:30:21 07/12/2023 10:17:49 [id number] LINDA DUNN MD [facility] [address] [address] 07/12/2023 09:30:43 07/12/2023 11:02:43 screening 655964622 Z36.0 Genetic in vestigation procedure 50072177 Z31.430 test positive 036757189 Z32.01 [id number] Dameon Yepez MD [facility] [address] [address] 08/09/2023 10:03:04 08/09/2023 11:14:12 Mixed anxiety and depressive disorder 673485467 F41.8 [id number] [facility] [address],[place] [address] 08/09/2023 10:03:44 08/09/2023 11:25:46 screening 273768422 Z36.82 Z3A.12 [id number] Dameon Yepez MD [facility] [address],[place] [address] 09/06/2023 10:14:06 09/06/2023 11:18:43 Urinary symptoms 217275108 R39.9 Nausea and vomiting 1693 2000 R11.2 Vulvovaginitis 80475442 N76.0 Routine an tenatal care 040115295 Z34.02 [id number] [facility] [address],[place] [address] 10/11/2023 09:08:19 10/11/2023 10:29:35 screening for malformation 703213446 Z36.3 Z3A.21 [id number] Dameon Yepez MD [facility] [address],[place] [address] 10/11/2023 09:11:12 10/11/2023 11:18:07 Routine care 061035682 Z34.02 [id number] [facility] [address],[place] [address] 11/12/2023 15:24:03 11/12/2023 16:20:09 Placental condition affecting management of mother 299873388 O43.102 Z3A.25 [id number] Dameon Yepez MD [facility] [address],[place] [address] 11/12/2023 15:24:34 11/12/2023 16:44:56 Urinary tract infectious disease 78910958 N39.0 Routine an tenatal care 046307815 Z34.02 [id number] [facility] [address],[place] [address] 12/09/2023 09:45:35 12/09/2023 10:34:29 Placental condition affecting management of mother 358621391 O43.103 Z3A.29 [id number] MD Tomás Stovall [address],[place] [address] 12/09/2023 09:45:55 12/09/2023 11:16:25 Routine care 063868429 Z34.02 [id number] MD [place]issie [place] [address],[place] [address] 12/24/2023 11:49:27 12/24/2023 12:51:33 Routine care 812900820 Z34.02 [id number] Pina De La O [facility] [address],[place] [address] 01/04/2024 10:49:26 01/04/2024 11:21:11 Placental condition affecting management of mother 372037159 O43.103 Z3A.33 [id number] Dameon Yepez MD [facility] [address],[place] [address] 01/05/2024 17:55:26 01/06/2024 18:01:26 Routine care 013152216 Z34.02 [id number] MD Tomás Stovall [address],[place] [address] 01/21/2024 16:07:49 01/25/2024 01:13:38 Pain in pelvis 22856827 R10.2 Urinary tr act infectious disease 80428405 N39.0 [id number] MD Tomás CRAVEN [address],[place] [address] 01/25/2024 16:01:04 01/25/2024 16:48:54 Mixed anxiety and depressive disorder 648571557 F41.8 Anemia of 2734 2003 O99.019 Gestation period, 36 weeks 83304615 Z3A.36 [id number] MD Tomás CRAVEN [address],[place] [address] 01/31/2024 15:08:20 01/31/2024 16:37:00 Marginal insertion of umbilical cord 24027431 O43.129 Mixed anxi ety and depressive disorder 305637974 F41.8 Gestation period, 37 weeks 47704500 Z3A.37 [id number] Pina De La O [facility] [address] [address] 02/08/2024 09:56:19 02/08/2024 10:43:10 Placental condition affecting management of mother 445648339 O43.103 Z3A.38 [id number] LINDA DUNN MD [facility] [address] [address] 02/08/2024 09:56:41 02/08/2024 11:00:21 Mixed anxiety and depressive disorder 927292206 F41.8 Anemia of 2732003 O99.019 Marginal i nsertion of umbilical cord 61082418 O43.129 Gestation period, 38 weeks 09271046 Z3A.38 Health Concerns Section Related Observation LastModified by Organization Detai ls LastModified Time None Recorded Concern Status LastModified by Organization Details LastModified Time None Recorded Advance Directives Directive None Recorded Payers Encounter Date Sequence Insurance Name Policy Number Policy Mcdonald Covered Member ID Mcdonald Member ID Guarantor Name 01/21/2024 1 [facility] AFTER 09/05/20 (MEDICAID REPLACEMENT - HMO) Alma Vinson [id number] Alma Vinson 01/25/2024 1 [facility] AFTER 09/05/20 (MEDICAID REPLACEMENT - HMO) Alma Vinson [id number] [facility] 01/31/2024 1 [facility] ON [facility] AFTER 09/05/20 (MEDICAID REPLACEMENT - HMO) Alma Vinson [id number] Alma Vinson 02/08/2024 1 [facility] ON OR AFTER 09/05/20 (MEDICAID REPLACEMENT - HMO) Alma Vinson [id number] Alma Vinson 02/08/2024 1 [facility] ON OR AFTER 09/05/20 (MEDICAID REPLACEMENT - HMO) Alma Vinson [id number] Alma Vinsno OBGyn Episode Ob Episode Information Episode Created Date Number of Fetuses Patient Bloodtype Patient rh Status Prepregnancy Weight lbs Domestic Partner Domestic Partner Phone Father Name Cytopathologist Status 08/09/19 24 1 O Positive [address] milian OPEN Fetus Data First Name Last Name Admitted to NICU Weight (g) Sex Living Outcome Pediatric Complications Fetus ID Race Codes Race Delivery Type [id number] Problems Problem Notes Problem Name Start Date End Date Resolution Snomed Code Not e Marginal insertion of umbilical cord 22780012 Mixed anxiety and depressive disorder 10/11/2023 236997356 Anemia 12/13/2023 809175724 1 tab slo wfe daily Justin Calculation [...] Gestation 0 [email or web address] 08/09/2023 02/19/20 24 0 Pre-naun Flowsheet Flowsheet Date 08/09/2023 Hagan Score Blood [...] Estim ated Date of Delivery false Thalassemia (English, Chilean, Mediterranean, Or Background): MCV < 80 false Neural Tube Defect (Meningomyelocele, Spina Bifi da, Or Anencephaly) false Congenital Heart Defect false Down Syndrome false Luan-Sachs (eg, Baptism, Cajun, Danish-Welsh) f alse Joni Disease false Sickle Cell Disease Or Trait () false Hemophilia Or Other Blood Disorders false Muscular Dystrophy false Cystic Fibrosis false Bryan's Chorea false Intellectual Disability/Autism false If Yes, [...]
--- OUTSIDE RECORDS SUMMARY | 2024-02-15 06:46 | XMS_ITS | Continuity of Care Document ---
Author Organization [facility] [place] Address [address] [place] [address] Assessment No assessment recorded. Plan of Treatment Reminders Order Date Submit Date Provider Last Modified By Organization Details Last Modified Time Details Appointments INDUCTION 2023 07:00A M LINDA DUNN MD Not available Not available Not available Lab None recorded. Referral None recorded. Procedures None recorded. Surgeries None recorded. Imaging None recorded. Medication Orders None recorded. Patient TargetsNo targets recorded. Patient InstructionsNo instructions recorded. Reason for Referral None Reported. Results Created Date Observation Date Name Description Value Unit Range Abnormal Flag Note LastModifiedBy Organization Detail LastModifiedTime 08/09/19 24 08/09/2023 US, obste tric, nucha l trans lucen cy No observ ation record ed. [email or web address] [place] [address], [place], [address], 08/09/2023 13:09:26 08/09/19 24 08/09/2023 US, obste tric, nucha l trans lucen cy No observ ation record ed. ZULEYKA Sahara [address], [place], [address], 08/11/2023 08:08:19 10/11/1910/11/2023 US, obste tric, 2nd or 3rd trime ster No observ ation record ed. [email or web address] [place] [address], [place], [address], 10/11/2023 12:59:17 10/11/19 24 10/11/2023 US, obste tric, 2nd or 3rd trime ster No observ ation record ed. [email or web address] [address], [place], [address], 10/11/2023 19:52:11 11/12/19 24 11/12/2023 US, obste tric, follo w-up No observ ation record ed. [email or web address] [place] [address], [place], [address], 11/12/2023 16:47:39 11/12/19 24 11/12/2023 US, obste tric, follo w-up No observ ation record ed. ZULEYKA [address], [place], [address], 11/15/2023 12:08:32 12/09/1912/09/2023 US, obste tric, follo w-up No observ ation record ed. [email or web address] [place] [address], [place], [address], 12/09/2023 12:55:34 12/09/1912/09/2023 US, obste tric, follo w-up No observ ation record ed. ZULEYKA [address], [place], [address], 12/10/2023 10:24:16 01/04/2001/04/2024 US, obste tric, follo w-up No observ ation record ed. [email or web address] [place] [address], [place], [address], 01/04/2024 13:22:53 01/04/20 24 01/04/2024 US, obste tric, follo w-up No observ ation record ed. [email or web address] [address], [place], [address], 01/10/2024 12:19:04 02/08/20 24 02/08/2024 US, obste tric, follo w-up No observ ation record ed. [email or web address] [place] [address], [place], [address], 02/08/2024 13:03:42 02/08/20 24 02/08/2024 US, obste tric, follo w-up No observ ation record ed. [email or web address] [address], [place], [address], 02/08/2024 21:47:09 Result Notes None recorded. Problems Name Problem SNOMED Code Status Onset Date Resolution Date Notes Provider Name and Address Organization Details Recorded Time Mixed anxiety and depressive disorder 559374747 Active 2023 Amber christensen, [facility] 4 10:43:00 42310133 Active 2023 Amber christensen, [facility] 4 10:43:50 Mixed anxiety and depressive disorder 667506403 Active 2023 Amber christensen, [facility] 4 10:43:00 Marginal insertion of umbilical cord 76157747 Active Dameon Yepez MD [address], [place], [address], , P[facility] 4 18:24:08 Anemia 780397459 Active 2023 1 tab slowfe daily Pablo christensen, [facility] 4 09:57:31 Problem Notes None recorded. Procedures Surgical History Date Name Laterality Status Provider Name and Address Organization Details Recorded Time 05/18/2023 Date of Last Pap Smear completed Radha Ward [facility] 07/12/2023 10:17:42 Imaging Results None recorded. Procedure Notes None recorded. Medical Equipment None Reported. Allergies Allergen ID Allergen Name Allergen Category Reaction Reaction Severity Criticality Documentation Date Start Date Code Code System Note Provider Name and Address Organization Details Recorded Time 46859 Bactrim medicatio n rash moderate Not available 07/12/2023 23848 9 RxNorm Radha [place], [place] - [facility] 4 10:17:34 Medications Name Sig Start Date Stop Date Status Note LastModified by Organization Details LastModified Time Prescript ion - Prior Authoriza tion Request active Not Available Not Available Not Available trazodone 50 mg tablet take 1 tablet by oral route 3 times every day after meals 07/11 completed Prescrib ed Elsewher e: Yes Loca tion: [facility] odify By: nadege ansari DateTime : 04/27/19 18 10:45:00 AM Not Available Not Available Not Available potassium gluconate 2.5 mEq tablet 07/11 completed Prescrib ed Elsewher e: Yes Loca tion: [facility] odify By: lin ansari DateTime : 02/12/20 [...] Prescrib ed Elsewher e: Yes Loca tion: [facility] odify By: lin ansari DateTime : 02/12/20 [...] Prescrib ed Elsewher e: Yes Loca tion: [facility] odify By: lin ansari DateTime : 02/12/20 [...] Prescrib ed Elsewher e: Yes Loca tion: [facility] odify By: lin ansari DateTime : 02/12/20 [...] Updated DateTime 01/31/2024 161.29 cm 30.2 kg/m2 54768.48 g 102 mm[Hg] 69 mm[Hg] Tasha Abdalla [facility] 15:51:50 Social History Question Answer Notes LastModified by Organizat ion Details LastModified Time Tobacco Smoking Status Current Every Day Smoker Radha christensen, [facility] 07/12/2023 10:31:12 What Is Your Level Of Alcohol Consumption? None Information not available 07/12/2023 If You Are , What Was Your Level Of Alcohol Consumption Prior To ? Occasional [email or web address] Information not available 10/11/2023 How Many Years [...] Or The Highest Degree You Have Received? [id number] Information not available 07/12/2023 What Is Your [...] Much Tobacco Do You Smoke? 1 PPW [email or web address] Information not available 09/06/2023 Do You Feel Stressed (tense, Restless, Nervous, Or Anxious, Or Unable To Sleep At Night)? [id number] Information not available 07/12/2023 Do You Use [...] available 2023 10:30:33 Father Heart disease CHF [email or web address] Not available 09/05 15:57:10 Father Hypercholest erolemia [email or web address] Not available 09/05 15:57:24 Maternal Grandfather Hypertensive disorder Not available 2023 10:30:33 Maternal Grandfather Malignant tumor of prostate [email or web address] Not available 2023 09:56:27 Maternal Grandfather Hypercholest erolemia [email or web address] Not available 09/05 15:57:24 Medical History Condition Response Allergies (Food, seasonal, environmental ) Y Other N Drug/Latex Allergies/Reactions N Breast Cancer N Blood Transfusion N Dermatologic Disorders N Lung Disease N Defects or Inherited Disease N Breast Problem N Gestational Diabetes N Hematologic disorders N Anesthesia Complications N History of STI Y Deep Vein Thrombosis N Polycystic ovary syndrome N Anxiety Disorder Y Autoimmune disease N Arthritis N Polyps N Infertility N Acid Reflux (GERD) N History of abnormal pap N Cancer N Varicosities N Stroke N Neurologic/Epilepsy N Endometriosis N High Cholesterol N Fibromyalgia N Headaches N Kidney Disease N Heart Problems N Thyroid Problems N Kidney or Bladder Problems N GI Problems N Eating Disorder [...] Diagnosis/Indication Diagnosis SNOMED-CT Code Diagnosis ICD10 Code [id number] Pina De La O [place] [address] [address] 01/04/2024 10:49:26 01/04/2024 11:21:11 Placental condition affecting management of mother 266758632 O43.103 Z3A.33 [id number] Dameon Yepez MD [place] [address] [address] 01/05/2024 17:55:26 01/06/2024 18:01:26 Routine care 043818609 Z34.02 [id number] Dameon Yepez MD [place] [address] [address] 01/21/2024 16:07:49 01/25/2024 01:13:38 Pain in pelvis 15128405 R10.2 Urinary tr act infectious disease 18614204 N39.0 [id number] LINDA DUNN MD [place] [address] [address] 01/25/2024 16:01:04 01/25/2024 16:48:54 Mixed anxiety and depressive disorder 219833920 F41.8 Anemia of 2734 2003 O99.019 Gestation period, 36 weeks 97474722 Z3A.36 [id number] LINDA DUNN MD [place] [address] [address] 01/31/2024 15:08:20 01/31/2024 16:37:00 Marginal insertion of umbilical cord 46311550 O43.129 Mixed anxi ety and depressive disorder 600382039 F41.8 Gestation period, 37 weeks 52353838 Z3A.37 Health Concerns Section Related Observation LastModified by Organization Detai ls LastModified Time None Recorded Concern Status LastModified by Organization Details LastModified Time None Recorded Payers Encounter Date Sequence Insurance Name Policy Number Policy Mcdonald Covered Member ID Mcdonald Member ID Guarantor Name 01/31/2024 1 [facility] ON OR AFTER 09/05/20 (MEDICAID REPLACEMENT - HMO) Alma Vinson [id number] Alma Vinson OBGyn Episode Ob Episode Information Episode Created Date Number of Fetuses Patient Bloodtype Patient rh Status Prepregnancy Weight lbs Domestic Partner Domestic Partner Phone Father Name Dairy Hand Status 08/09/19 24 1 O Positive [address] OPEN Fetus Data First Name Last Name Admitted to NICU Weight (g) Sex Living Outcome Pediatric Complications Fetus ID Race Codes Race Delivery Type [id number] Problems Problem Notes Problem Name Start Date End Date Resolution Snomed Code Not e Marginal insertion of umbilical cord 60238725 Mixed anxiety and depressive disorder 10/11/2023 410681623 Anemia 12/13/2023 013237600 1 tab slo wfe daily Justin Calculation [...] Estim ated Date of Delivery false Thalassemia (Filipino, Estonian, Mediterranean, Or Background): MCV < 80 false Neural Tube Defect (Meningomyelocele, Spina Bifi da, Or Anencephaly) false Congenital Heart Defect false Down Syndrome false Luan-Sachs (eg, Yazidism, Cajun, Comoran-Icelandic) f alse Joni Disease false Sickle Cell Disease Or Trait () false Hemophilia Or Other Blood Disorders false Muscular Dystrophy false Cystic Fibrosis false Mifflin's Chorea false Intellectual Disability/Autism false If Yes, [...]
--- OUTSIDE RECORDS SUMMARY | 2024-02-15 06:46 | XMS_ITS | Continuity of Care Document ---
Author Organization [facility] [place] Address [address] [place] [address] Assessment No assessment recorded. Plan of Treatment [...] cy No observ ation record ed. [email or web address] [place] [address], [place], [address], 08/09/2023 13:09:26 08/09/19 24 08/09/2023 US, obste tric, nucha l trans lucen cy No observ ation record ed. ZULEYKA [address], [place], [address], 08/11/2023 08:08:19 10/11/1910/11/2023 US, obste tric, 2nd or 3rd trime ster No observ ation record ed. [email or web address] [place] [address], [place], [address], 10/11/2023 12:59:17 10/11/19 24 10/11/2023 US, obste tric, 2nd or 3rd trime ster No observ ation record ed. [email or web address] [address], [place], [address], 10/11/2023 19:52:11 11/12/19 24 11/12/2023 US, obste tric, follo w-up No observ ation record ed. [email or web address] [place] [address], [place], [address], 11/12/2023 16:47:39 11/12/19 24 11/12/2023 US, obste tric, follo w-up No observ ation record ed. ZULEYKA [address], [place], [address], 11/15/2023 12:08:32 12/09/1912/09/2023 US, obste tric, follo w-up No observ ation record ed. [email or web address] [place] [address], [place], [address], 12/09/2023 12:55:34 12/09/1912/09/2023 US, obste tric, follo w-up No observ ation record ed. ZULEYKA [address], [place], [address], 12/10/2023 10:24:16 01/04/2001/04/2024 US, obste tric, follo w-up No observ ation record ed. [email or web address] [place] [address], [place], [address], 01/04/2024 13:22:53 01/04/20 24 01/04/2024 US, obste tric, follo w-up No observ ation record ed. [email or web address] [address], [place], [address], 01/10/2024 12:19:04 02/08/20 24 02/08/2024 US, obste tric, follo w-up No observ ation record ed. [email or web address] [place] [address], [place], [address], 02/08/2024 13:03:42 02/08/20 24 02/08/2024 US, obste tric, follo w-up No observ ation record ed. [email or web address] [address], [place], [address], 02/08/2024 21:47:09 Result Notes None recorded. Problems Name Problem SNOMED Code Status Onset Date Resolution Date Notes Provider Name and Address Organization Details Recorded Time Mixed anxiety and depressive disorder 305349570 Active 2023 Amber christensen, [facility] 4 10:43:00 78647204 Active 2023 Amber christensen, [facility] 4 10:43:50 Mixed anxiety and depressive disorder 471126592 Active 2023 Amber christensen, [facility] 4 10:43:00 Marginal insertion of umbilical cord 25107174 Active Dameon Yepez MD [address], [place], [address], [facility] 4 18:24:08 Anemia 909443506 Active 2023 1 tab slowfe daily Pablo christensen, [facility] 4 09:57:31 Problem Notes None recorded. Procedures Surgical History Date Name Laterality Status Provider Name and Address Organization Details Recorded Time 05/18/2023 Date of Last Pap Smear completed Radha Ward [facility] 07/12/2023 10:17:42 Imaging Results None recorded. Procedure Notes None recorded. Medical Equipment None Reported. Allergies Allergen ID Allergen Name Allergen Category Reaction Reaction Severity Criticality Documentation Date Start Date Code Code System Note Provider Name and Address Organization Details Recorded Time 72734 Bactrim medicatio n rash moderate Not available 07/12/2023 09270 9 RxNorm Radha [place], [place] - [facility] 4 10:17:34 Medications Name Sig Start Date Stop Date Status Note LastModified by Organization Details LastModified Time Prescript ion - Prior Authoriza tion Request active Not Available Not Available Not Available trazodone 50 mg tablet take 1 tablet by oral route 3 times every day after meals 07/11 completed Prescrib ed Elsewher e: Yes Loca tion: [facility] odify By: nadege ansari DateTime : 04/27/19 18 10:45:00 AM Not Available Not Available Not Available potassium gluconate 2.5 mEq tablet 07/11 completed Prescrib ed Elsewher e: Yes Loca tion: [facility] odify By: lin ansari DateTime : [...] Prescrib ed Elsewher e: Yes Loca tion: [facility] odify By: lin ansari DateTime : [...] Prescrib ed Elsewher e: Yes Loca tion: [facility] odify By: lin ansari DateTime : [...] Prescrib ed Elsewher e: Yes Loca tion: [facility] odify By: lin ansari DateTime : [...] Updated DateTime 02/08/2024 161.29 cm 30.3 kg/m2 82719.07 g 116 mm[Hg] 76 mm[Hg] Tasha Abdalla [facility] 10:39:21 Social History Question Answer Notes LastModified by Organizat ion Details LastModified Time Tobacco Smoking Status Current Every Day Smoker Radha christensen, [facility] 07/12/2023 10:31:12 What Is Your Level Of Alcohol Consumption? None Information not available 07/12/2023 If You Are , What Was Your Level Of Alcohol Consumption Prior To ? Occasional [email or web address] Information not available 10/11/2023 How Many Years [...] Or The Highest Degree You Have Received? [id number] Information not available 07/12/2023 What Is Your [...] Much Tobacco Do You Smoke? 1 PPW [email or web address] Information not available 09/06/2023 Do You Feel Stressed (tense, Restless, Nervous, Or Anxious, Or Unable To Sleep At Night)? [id number] Information not available 07/12/2023 Do You Use [...] available 2023 10:30:33 Father Heart disease CHF [email or web address] Not available 09/05 15:57:10 Father Hypercholest erolemia [email or web address] Not available 09/05 15:57:24 Maternal Grandfather Hypertensive disorder Not available 2023 10:30:33 Maternal Grandfather Malignant tumor of prostate [email or web address] Not available 2023 09:56:27 Maternal Grandfather Hypercholest erolemia [email or web address] Not available 09/05 15:57:24 Medical History Condition [...] Diagnosis/Indication Diagnosis SNOMED-CT Code Diagnosis ICD10 Code [id number] Dameon Yepez MD [place] [address] [address] 01/21/2024 16:07:49 01/25/2024 01:13:38 Pain in pelvis 59325188 R10.2 Urinary tr act infectious disease 55349582 N39.0 [id number] LINDA DUNN MD [place] [address] [address] 01/25/2024 16:01:04 01/25/2024 16:48:54 Mixed anxiety and depressive disorder 056680276 F41.8 Anemia of 2734 2003 O99.019 Gestation period, 36 weeks 19590175 Z3A.36 [id number] LINDA DUNN MD [place] [address],[place] [address] 01/31/2024 15:08:20 01/31/2024 16:37:00 Marginal insertion of umbilical cord 81447369 O43.129 Mixed anxi ety and depressive disorder 792872763 F41.8 Gestation period, 37 weeks 56213571 Z3A.37 [id number] Pina De La O [place] [address] [address] 02/08/2024 09:56:19 02/08/2024 10:43:10 Placental condition affecting management of mother 339972572 O43.103 Z3A.38 [id number] LINDA DUNN MD [place] [address] [address] 02/08/2024 09:56:41 02/08/2024 11:00:21 Mixed anxiety and depressive disorder 508434582 F41.8 Anemia of 2734 2003 O99.019 Marginal i nsertion of umbilical cord 80590217 O43.129 Gestation period, 38 weeks 95741073 Z3A.38 Health Concerns Section Related Observation LastModified by Organization Detai ls LastModified Time None Recorded Concern Status LastModified by Organization Details LastModified Time None Recorded Payers Encounter Date Sequence Insurance Name Policy Number Policy Mcdonald Covered Member ID Mcdonald Member ID Guarantor Name 02/08/2024 1 [facility] ON OR AFTER 09/05/20 (MEDICAID REPLACEMENT - HMO) Alma Vinson [id number] Alma Vinson OBGyn Episode Ob Episode Information Episode Created Date Number of Fetuses Patient Bloodtype Patient rh Status Prepregnancy Weight lbs Domestic Partner Domestic Partner Phone Father Name Vp Care Management Status 08/09/19 24 1 O Positive [address] OPEN Fetus Data First Name Last Name Admitted to NICU Weight (g) Sex Living Outcome Pediatric Complications Fetus ID Race Codes Race Delivery Type [id number] Problems Problem Notes Problem Name Start Date End Date Resolution Snomed Code Not e Marginal insertion of umbilical cord 55652804 Mixed anxiety and depressive disorder 10/11/2023 225754705 Anemia 12/13/2023 668112508 1 tab slo wfe daily Justin Calculation [...] Estim ated Date of Delivery false Thalassemia (Urdu, Stateless, Mediterranean, Or Background): MCV < 80 false Neural Tube Defect (Meningomyelocele, Spina Bifi da, Or Anencephaly) false Congenital Heart Defect false Down Syndrome false Luan-Sachs (eg, Yazdanism, Cajun, Chadian-Northern Irish) f alse Joni Disease false Sickle Cell Disease Or Trait () false Hemophilia Or Other Blood Disorders false Muscular Dystrophy false Cystic Fibrosis false [place]'s Chorea false Intellectual Disability/Autism false If Yes, [...]
--- OUTSIDE RECORDS SUMMARY | 2024-02-15 06:47 | XMS_ITS | Continuity of Care Document ---
Author Organization [facility] [place] Address [address] [place] [address] Assessment No assessment recorded. Plan of Treatment [...] cy No observ ation record ed. [email or web address] [place] [address], [place], [address], 08/09/2023 13:09:26 08/09/19 24 08/09/2023 US, obste tric, nucha l trans lucen cy No observ ation record ed. ZULEYKA [facility] [address], [place], [address], 08/11/2023 08:08:19 10/11/1910/11/2023 US, obste tric, 2nd or 3rd trime ster No observ ation record ed. [email or web address] [place] [address], [place], [address], 10/11/2023 12:59:17 10/11/19 24 10/11/2023 US, obste tric, 2nd or 3rd trime ster No observ ation record ed. [email or web address] [address], [place], [address], 10/11/2023 19:52:11 11/12/19 24 11/12/2023 US, obste tric, follo w-up No observ ation record ed. [email or web address] [place] [address], [place], [address], 11/12/2023 16:47:39 11/12/19 24 11/12/2023 US, obste tric, follo w-up No observ ation record ed. ZULEYKA [address], [place], [address], 11/15/2023 12:08:32 12/09/1912/09/2023 US, obste tric, follo w-up No observ ation record ed. [email or web address] [place] [address], [place], [address], 12/09/2023 12:55:34 12/09/1912/09/2023 US, obste tric, follo w-up No observ ation record ed. ZULEYKA [address], [place], [address], 12/10/2023 10:24:16 01/04/2001/04/2024 US, obste tric, follo w-up No observ ation record ed. [email or web address] [place] [address], [place], [address], 01/04/2024 13:22:53 01/04/20 24 01/04/2024 US, obste tric, follo w-up No observ ation record ed. [email or web address] [address], [place], [address], 01/10/2024 12:19:04 02/08/20 24 02/08/2024 US, obste tric, follo w-up No observ ation record ed. [email or web address] [place] [address], [place], [address], 02/08/2024 13:03:42 02/08/20 24 02/08/2024 US, obste tric, follo w-up No observ ation record ed. [email or web address] [address], [place], [address], 02/08/2024 21:47:09 Result Notes None recorded. Problems Name Problem SNOMED Code Status Onset Date Resolution Date Notes Provider Name and Address Organization Details Recorded Time Mixed anxiety and depressive disorder 394913755 Active 2023 Amber christensen, [facility] 4 10:43:00 20128169 Active 2023 Amber christensen, [facility] 4 10:43:50 Mixed anxiety and depressive disorder 831041022 Active 2023 Amber christensen, [facility] 4 10:43:00 Marginal insertion of umbilical cord 22182966 Active Dameon Yepez MD [address], [place], [address], [facility] 4 18:24:08 Anemia 082550494 Active 2023 1 tab slowfe daily Pablo christensen, [facility] 4 09:57:31 Problem Notes None recorded. Procedures Surgical History Date Name Laterality Status Provider Name and Address Organization Details Recorded Time 05/18/2023 Date of Last Pap Smear completed Radha Ward [facility] 07/12/2023 10:17:42 Imaging Results None recorded. Procedure Notes None recorded. Medical Equipment None Reported. Allergies Allergen ID Allergen Name Allergen Category Reaction Reaction Severity Criticality Documentation Date Start Date Code Code System Note Provider Name and Address Organization Details Recorded Time 34528 Bactrim medicatio n rash moderate Not available 07/12/2023 48156 9 RxNorm [place] - [facility] 4 10:17:34 Medications Name Sig Start Date Stop Date Status Note LastModified by Organization Details LastModified Time Prescript ion - Prior Authoriza tion Request active Not Available Not Available Not Available trazodone 50 mg tablet take 1 tablet by oral route 3 times every day after meals 07/11 completed Prescrib ed Elsewher e: Yes Loca tion: [facility] odify By: nadege ansari DateTime : 04/27/19 18 10:45:00 AM Not Available Not Available Not Available potassium gluconate 2.5 mEq tablet 07/11 completed Prescrib ed Elsewher e: Yes Loca tion: [facility] odify By: lin ansari DateTime : [...] Prescrib ed Elsewher e: Yes Loca tion: [facility] odify By: lin ansari DateTime : [...] Prescrib ed Elsewher e: Yes Loca tion: [facility] odify By: lin ansari DateTime : [...] Prescrib ed Elsewher e: Yes Loca tion: [facility] odify By: lin ansari DateTime : [...] Updated DateTime 01/25/2024 161.29 cm 30.2 kg/m2 25876.48 g 116 mm[Hg] 74 mm[Hg] Tasha Abdalla [facility] 16:11:08 Social History Question Answer Notes LastModified by Organizat ion Details LastModified Time Tobacco Smoking Status Current Every Day Smoker Radha christensen, [facility] 07/12/2023 10:31:12 What Is Your Level Of Alcohol Consumption? None Information not available 07/12/2023 If You Are , What Was Your Level Of Alcohol Consumption Prior To ? Occasional [email or web address] Information not available 10/11/2023 How Many Years [...] Or The Highest Degree You Have Received? [id number] Information not available 07/12/2023 What Is Your [...] Much Tobacco Do You Smoke? 1 PPW [email or web address] Information not available 09/06/2023 Do You Feel Stressed (tense, Restless, Nervous, Or Anxious, Or Unable To Sleep At Night)? [id number] Information not available 07/12/2023 Do You Use [...] available 2023 10:30:33 Father Heart disease CHF [email or web address] Not available 09/05 15:57:10 Father Hypercholest erolemia [email or web address] Not available 09/05 15:57:24 Maternal Grandfather Hypertensive disorder Not available 2023 10:30:33 Maternal Grandfather Malignant tumor of prostate [email or web address] Not available 2023 09:56:27 Maternal Grandfather Hypercholest erolemia [email or web address] Not available 09/05 15:57:24 Medical History Condition [...] Diagnosis/Indication Diagnosis SNOMED-CT Code Diagnosis ICD10 Code [id number] Pina De La O [place] [address] [address] 01/04/2024 10:49:26 01/04/2024 11:21:11 Placental condition affecting management of mother 273631409 O43.103 Z3A.33 [id number] Dameon Yepez MD [place] [address] [address] 01/05/2024 17:55:26 01/06/2024 18:01:26 Routine care 836194966 Z34.02 [id number] Dameon Yepez MD [place] [address] [address] 01/21/2024 16:07:49 01/25/2024 01:13:38 Pain in pelvis 82200969 R10.2 Urinary tr act infectious disease 22434164 N39.0 [id number] LINDA DUNN MD [place] [address] [address] 01/25/2024 16:01:04 01/25/2024 16:48:54 Mixed anxiety and depressive disorder 751406031 F41.8 Anemia of 2734 2003 O99.019 Gestation period, 36 weeks 60510159 Z3A.36 Health Concerns Section Related Observation LastModified by Organization Detai ls LastModified Time None Recorded Concern Status LastModified by Organization Details LastModified Time None Recorded Payers Encounter Date Sequence Insurance Name Policy Number Policy Mcdonald Covered Member ID Mcdonald Member ID Guarantor Name 01/25/2024 1 [facility] ON OR AFTER 09/05/20 (MEDICAID REPLACEMENT - HMO) Alma Vinson [id number] Alma Vinson OBGyn Episode Ob Episode Information Episode Created Date Number of Fetuses Patient Bloodtype Patient rh Status Prepregnancy Weight lbs Domestic Partner Domestic Partner Phone Father Name Wiping Cloth Cutter Status 08/09/19 24 1 O Positive [address] OPEN Fetus Data First Name Last Name Admitted to NICU Weight (g) Sex Living Outcome Pediatric Complications Fetus ID Race Codes Race Delivery Type [id number] Problems Problem Notes Problem Name Start Date End Date Resolution Snomed Code Not e Marginal insertion of umbilical cord 27043924 Mixed anxiety and depressive disorder 10/11/2023 045013185 Anemia 12/13/2023 688617860 1 tab slo wfe daily Sri Calculation SRI Calculation Method Initial Sri Date Initial Exam Date Initial Exam Provider Initial Ultrasound Date Last Menstrual Period Date Ultra Sound Weeks Gestation Conception by IVF Embryo Age at Transfer Date of Transfer 02/19/20 24 08/09/19 24 07/12/2023 05/15/2023 8 Eighteen To Twenty Week Sri Update Ultra Sound Date Fundal Height At Umbil Quickening Date Ultra Sound Latest Weeks Gestation Final Sri Confirmed By Final Sri Confirmed Date Final Sri Date Ultra Sound Latest Days Gestation 0 [email or web address] 08/09/2023 02/19/20 24 0 Pre-naun Flowsheet Flowsheet Date 08/09/2023 Hagan Score Blood Edema Fundus Height Fundus Units Glucose Ketones Leukocytes Nitrite Labor Signs Protein Cervic Dilation Cervic Effacement Cervic Station Type Weight in lbs Pre/Post Dialysis Refused Weight 123.162707265522 BP Diastolic BP Location Tested BP Systolic [...] Effacement Cervic Station Type Weight in lbs Pre/Post Dialysis Refused BP Diastolic BP Location Tested BP Systolic BP Type Fetus Heart Rate Present Fetus Movement Comments Flowsheet Date 09/06/2023 Hagan Score Blood Edema Fundus Height Fundus Units Glucose Ketones Leukocytes Nitrite Labor Signs Protein Cervic Dilation Cervic Effacement Cervic Station none Type Weight in lbs Pre/Post Dialysis Refused Weight 127.016721240934 BP Diastolic BP Location Tested BP Systolic [...] Effacement Cervic Station Type Weight in lbs Pre/Post Dialysis Refused BP Diastolic BP Location Tested BP Systolic BP Type Fetus Heart Rate Present Fetus Movement Comments Flowsheet Date 10/11/2023 Hagan Score Blood Edema Fundus Height Fundus Units Glucose Ketones Leukocytes Nitrite Labor Signs Protein Cervic Dilation Cervic Effacement Cervic Station Type Weight in lbs Pre/Post Dialysis Refused 140.338765779841 BP Diastolic BP Location Tested BP Systolic [...] Effacement Cervic Station Type Weight in lbs Pre/Post Dialysis Refused BP Diastolic BP Location Tested BP Systolic BP Type Fetus Heart Rate Present Fetus Movement Comments Flowsheet Date 11/12/2023 Hagan Score Blood Edema Fundus Height Fundus Units Glucose Ketones Leukocytes Nitrite Labor Signs Protein Cervic Dilation Cervic Effacement Cervic Station neg none 26 cm none trace Type Weight in lbs Pre/Post Dialysis Refused 149.662340956338 BP Diastolic BP Location Tested BP Systolic [...] Effacement Cervic Station Type Weight in lbs Pre/Post Dialysis Refused BP Diastolic BP Location Tested BP Systolic BP Type Fetus Heart Rate Present Fetus Movement Comments Flowsheet Date 12/09/2023 Hagan Score Blood Edema Fundus Height Fundus Units Glucose Ketones Leukocytes Nitrite Labor Signs Protein Cervic Dilation Cervic Effacement Cervic Station 29 cm Type Weight in lbs Pre/Post Dialysis Refused 156.001301840032 BP Diastolic BP Location Tested BP Systolic [...] Effacement Cervic Station Type Weight in lbs Pre/Post Dialysis Refused 160.765336977717 BP Diastolic BP Location Tested BP Systolic [...] Effacement Cervic Station Type Weight in lbs Pre/Post Dialysis Refused BP Diastolic BP Location Tested BP Systolic BP Type Fetus Heart Rate Present Fetus Movement Comments Flowsheet Date 01/05/2024 Hagan Score Blood Edema Fundus Height Fundus Units Glucose Ketones Leukocytes Nitrite Labor Signs Protein Cervic Dilation Cervic Effacement Cervic Station 33 cm Type Weight in lbs Pre/Post Dialysis Refused 166.350248049896 BP Diastolic BP Location Tested BP Systolic [...] Effacement Cervic Station Type Weight in lbs Pre/Post Dialysis Refused Weight 171.684174220452 BP Diastolic BP Location Tested BP Systolic [...] 1cm 50% -3 Type Weight in lbs Pre/Post Dialysis Refused Weight 173.393536613181 BP Diastolic BP Location Tested BP Systolic [...] none none trace Type Weight in lbs Pre/Post Dialysis Refused Weight 173.455642531339 BP Diastolic BP Location Tested BP Systolic [...] Effacement Cervic Station Type Weight in lbs Pre/Post Dialysis Refused BP Diastolic BP Location Tested BP Systolic BP Type Fetus Heart Rate Present Fetus Movement Comments Flowsheet Date 02/08/2024 Hagan Score Blood Edema Fundus Height Fundus Units Glucose Ketones Leukocytes Nitrite Labor Signs Protein Cervic Dilation Cervic Effacement Cervic Station neg none Type Weight in lbs Pre/Post Dialysis Refused Weight 174.281644830568 BP Diastolic BP Location Tested BP Systolic [...] Estim ated Date of Delivery false Thalassemia (Croatian, Mohawk, Mediterranean, Or Background): MCV < 80 false Neural Tube Defect (Meningomyelocele, Spina Bifi da, Or Anencephaly) false Congenital Heart Defect false Down Syndrome false Luan-Sachs (eg, Mormonism, Cajun, Swazi-Mauritanian) f alse Joni Disease false Sickle Cell Disease Or Trait () false Hemophilia Or Other Blood Disorders false Muscular Dystrophy false Cystic Fibrosis false [place]'s Chorea false Intellectual Disability/Autism false If Yes, [...]
--- OUTSIDE RECORDS SUMMARY | 2024-02-15 06:47 | XMS_ITS | Continuity of Care Document ---
Author Organization [facility] Address [address] [place] [address] Assessment Encounter Date Assessment Date Assessment LastModified by Organization Details LastModified Time 12/24/2023 12/24/2023 Patient is ___weeks . Discussed plan. [email or web address] Not available 12/24/2023 12:18:28 Plan of Treatment Reminders Order Date Submit [...] cy No observ ation record ed. [email or web address] [place] [address], [place], [address], 08/09/2023 13:09:26 08/09/19 24 08/09/2023 US, obste tric, nucha l trans lucen cy No observ ation record ed. ZULEYKA [address], [place], [address], 08/11/2023 08:08:19 10/11/19 24 10/11/2023 US, obste tric, 2nd or 3rd trime ster No observ ation record ed. [email or web address] [place] [address], [place], [address], 10/11/2023 12:59:17 10/11/19 24 10/11/2023 US, obste tric, 2nd or 3rd trime ster No observ ation record ed. [email or web address] [address], [place], [address], 10/11/2023 19:52:11 11/12/19 24 11/12/2023 US, obste tric, follo w-up No observ ation record ed. [email or web address] [place] [address], [place], [address], 11/12/2023 16:47:39 11/12/19 24 11/12/2023 US, obste tric, follo w-up No observ ation record ed. ZULEYKA [address], [place], [address], 11/15/2023 12:08:32 12/09/19 24 12/09/2023 US, obste tric, follo w-up No observ ation record ed. [email or web address] [place] [address], [place], [address], 12/09/2023 12:55:34 12/09/19 24 12/09/2023 US, obste tric, follo w-up No observ ation record ed. ZULEYKA [address], [place], [address], 12/10/2023 10:24:16 01/04/20 24 01/04/2024 US, obste tric, follo w-up No observ ation record ed. [email or web address] [place] [address], [place], [address], 01/04/2024 13:22:53 01/04/20 24 01/04/2024 US, obste tric, follo w-up No observ ation record ed. [email or web address] [address], [place], [address], 01/10/2024 12:19:04 02/08/20 24 02/08/2024 US, obste tric, follo w-up No observ ation record ed. [email or web address] [place] [address], [place], [address], 02/08/2024 13:03:42 02/08/20 24 02/08/2024 US, obste tric, follo w-up No observ ation record ed. [email or web address] [address], [place], [address], 02/08/2024 21:47:09 Result Notes None recorded. Problems Name Problem SNOMED Code Status Onset Date Resolution Date Notes Provider Name and Address Organization Details Recorded Time Mixed anxiety and depressive disorder 589130454 Active 2023 Amber christensen, [facility] 4 10:43:00 07153758 Active 2023 Amber christensen, [facility] 4 10:43:50 Mixed anxiety and depressive disorder 504532830 Active 2023 Amber christensen [facility] 4 10:43:00 Marginal insertion of umbilical cord 10483007 Active Dameon Yepez MD [address], [place], [address], [facility] 4 18:24:08 Anemia 335965293 Active 2023 1 tab slowfe daily Pablo christensen, [facility] 4 09:57:31 Problem Notes None recorded. Procedures Surgical History Date Name Laterality Status Provider Name and Address Organization Details Recorded Time 05/18/2023 Date of Last Pap Smear completed Radha Ward [facility] 07/12/2023 10:17:42 Imaging Results None recorded. Procedure Notes None recorded. Medical Equipment None Reported. Allergies Allergen ID Allergen Name Allergen Category Reaction Reaction Severity Criticality Documentation Date Start Date Code Code System Note Provider Name and Address Organization Details Recorded Time 44041 Bactrim medicatio n rash moderate Not available 07/12/2023 64169 9 RxNorm Radha Ward [facility] 10:17:34 Medications Name Sig Start Date Stop Date Status Note LastModified by Organization Details LastModified Time Prescript ion - Prior Authoriza tion Request active Not Available Not Available Not Available trazodone 50 mg tablet take 1 tablet by oral route 3 times every day after meals 07/11 completed Prescrib ed Elsewher e: Yes Loca tion: [facility] odify By: nadege ansari DateTime : 04/27/19 18 10:45:00 AM Not Available Not Available Not Available potassium gluconate 2.5 mEq tablet 07/11 completed Prescrib ed Elsewher e: Yes Loca tion: [facility] odify By: lin ansari DateTime : [...] Prescrib ed Elsewher e: Yes Loca tion: [facility] odify By: lin [email or web address] DateTime : 02/12/20 17 02:30:00 PM Not [...] Prescrib ed Elsewher e: Yes Loca tion: [facility] odify By: lin ansari DateTime : [...] Prescrib ed Elsewher e: Yes Loca tion: [facility] odify By: lin ansari DateTime : [...] and Address Organization Details Last Updated DateTime 12/24/2023 161.29 cm 27.9 kg/m2 70077.77 92 g 110 mm[Hg] 75 mm[Hg] Sarah Turner MD - [facility] 12:19:30 Social History Question Answer Notes LastModified by Organizat ion Details LastModified Time Tobacco Smoking Status Current Every Day Smoker Radha Virkse [facility] 07/12/2023 10:31:12 What Is Your Level Of Alcohol Consumption? None Information not available 07/12/2023 If You Are , What Was Your Level Of Alcohol Consumption Prior To ? Occasional [email or web address] Information not available 10/11/2023 How Many Years [...] Or The Highest Degree You Have Received? [id number] Information not available 07/12/2023 What Is Your [...] Much Tobacco Do You Smoke? 1 PPW [email or web address] Information not available 09/06/2023 Do You Feel Stressed (tense, Restless, Nervous, Or Anxious, Or Unable To Sleep At Night)? [id number] Information not available 07/12/2023 Do You Use [...] available 2023 10:30:33 Father Heart disease CHF [email or web address] Not available 09/05 15:57:10 Father Hypercholest erolemia [email or web address] Not available 09/05 15:57:24 Maternal Grandfather Hypertensive disorder Not available 2023 10:30:33 Maternal Grandfather Malignant tumor of prostate [email or web address] Not available 2023 09:56:27 Maternal Grandfather Hypercholest erolemia [email or web address] Not available 09/05 15:57:24 Medical History Condition [...] Diagnosis/Indication Diagnosis SNOMED-CT Code Diagnosis ICD10 Code 288775 Pina De La O [place] [address] [address] 12/09/2023 09:45:35 12/09/2023 10:34:29 Placental condition affecting management of mother 483441064 O43.103 Z3A.29 [id number] Dameon Yepez MD [facility] [address] [address] 12/09/2023 09:45:55 12/09/2023 11:16:25 Routine care 705615696 Z34.02 [id number] Dameon Yepez MD [facility] [address] [address] 12/24/2023 11:49:27 12/24/2023 12:51:33 Routine care 893805350 Z34.02 Health Concerns Section Related Observation LastModified by Organization Detai ls LastModified Time None Recorded Concern Status LastModified by Organization Details LastModified Time None Recorded Payers Encounter Date Sequence Insurance Name Policy Number Policy Mcdonald Covered Member ID Mcdonald Member ID Guarantor Name 12/24/2023 1 [facility] - DOS ON OR AFTER 20 (MEDICAID REPLACEMENT - HMO) Alma Vinson [id number] Alma Vinson OBGymarcella Episode Ob Episode Information Episode Created Date Number of Fetuses Patient Bloodtype Patient rh Status Prepregnancy Weight lbs Domestic Partner Domestic Partner Phone Father Name Benefit Authorizer Status 08/09/19 24 1 O Positive [address] OPEN Fetus Data First Name Last Name Admitted to NICU Weight (g) Sex Living Outcome Pediatric Complications Fetus ID Race Codes Race Delivery Type [id number] Problems Problem Notes Problem Name Start Date End Date Resolution Snomed Code Not e Marginal insertion of umbilical cord 35532007 Mixed anxiety and depressive disorder 10/11/2023 252057641 Anemia 12/13/2023 363256545 1 tab slo wfe daily Justin Calculation [...] discontinue without discussing it. Flowsheet Date 10/11/2023 Hagna Score Blood Edema Fundus Height Fundus Units [...] Estim ated Date of Delivery false Thalassemia (German, Kosovan, Mediterranean, Or Background): MCV < 80 false Neural Tube Defect (Meningomyelocele, Spina Bifi da, Or Anencephaly) false Congenital Heart Defect false Down Syndrome false Luan-Sachs (eg, Episcopal, Cajun, Maldivian-[place]) f alse Joni Disease false Sickle Cell Disease Or Trait () false Hemophilia Or Other Blood Disorders false Muscular Dystrophy false Cystic Fibrosis false [place]'s Chorea false Intellectual Disability/Autism false If Yes, [...]
--- OUTSIDE RECORDS SUMMARY | 2024-02-15 06:47 | XMS_ITS | Continuity of Care Document ---
Author Organization [facility] Address [address] [place] [address] Assessment Encounter Date Assessment Date Assessment LastModified by Organization Details LastModified Time 12/09/2023 12/09/2023 Patient is ___weeks . Discussed plan. [email or web address] Not available 12/09/2023 10:32:37 Plan of Treatment Reminders Order Date Submit [...] cy No observ ation record ed. [email or web address] [facility] [address], [place], [address], 08/09/2023 13:09:26 08/09/19 24 08/09/2023 US, obste tric, nucha l trans lucen cy No observ ation record ed. ZULEYKA [facility] [address], [place], [address], 08/11/2023 08:08:19 10/11/19 24 10/11/2023 US, obste tric, 2nd or 3rd trime ster No observ ation record ed. [email or web address] [facility] [address], [place], [address], 10/11/2023 12:59:17 10/11/19 24 10/11/2023 US, obste tric, 2nd or 3rd trime ster No observ ation record ed. [email or web address] [address] [address], [place], [address], 10/11/2023 19:52:11 11/12/19 24 11/12/2023 US, obste tric, follo w-up No observ ation record ed. [email or web address] [facility] [address], [place], [address], 11/12/2023 16:47:39 11/12/19 24 11/12/2023 US, obste tric, follo w-up No observ ation record ed. ZULEYKA [address], [place], [address], 11/15/2023 12:08:32 12/09/19 24 12/09/2023 US, obste tric, follo w-up No observ ation record ed. [email or web address] [facility] [address], [place], [address], 12/09/2023 12:55:34 12/09/19 24 12/09/2023 US, obste tric, follo w-up No observ ation record ed. ZULEYKA [address], [place], [address], 12/10/2023 10:24:16 01/04/20 24 01/04/2024 US, obste tric, follo w-up No observ ation record ed. [email or web address] [facility] [address], [place], [address], 01/04/2024 13:22:53 01/04/20 24 01/04/2024 US, obste tric, follo w-up No observ ation record ed. [email or web address] [address], [place], [address], 01/10/2024 12:19:04 02/08/20 24 02/08/2024 US, obste tric, follo w-up No observ ation record ed. [email or web address] [facility] [address], [place], [address], 02/08/2024 13:03:42 02/08/20 24 02/08/2024 US, obste tric, follo w-up No observ ation record ed. [email or web address] [address], [place], [address], 02/08/2024 21:47:09 Result Notes None recorded. Problems Name Problem SNOMED Code Status Onset Date Resolution Date Notes Provider Name and Address Organization Details Recorded Time Mixed anxiety and depressive disorder 350961940 Active 2023 Amber christensen, [facility] 4 10:43:00 80711642 Active 2023 Amber christensen, [facility] 4 10:43:50 Mixed anxiety and depressive disorder 970437623 Active 2023 Amber christensen [facility] 4 10:43:00 Marginal insertion of umbilical cord 09678466 Active Dameon Yepez MD [address], [place], [address], [facility] 4 18:24:08 Anemia 326698095 Active 2023 1 tab slowfe daily Pablo christensen, [facility] 4 09:57:31 Problem Notes None recorded. Procedures Surgical History Date Name Laterality Status Provider Name and Address Organization Details Recorded Time 05/18/2023 Date of Last Pap Smear completed Radha Ed [facility] 07/12/2023 10:17:42 Imaging Results None recorded. Procedure Notes None recorded. Medical Equipment None Reported. Allergies Allergen ID Allergen Name Allergen Category Reaction Reaction Severity Criticality Documentation Date Start Date Code Code System Note Provider Name and Address Organization Details Recorded Time 57992 Bactrim medicatio n rash moderate Not available 07/12/2023 27578 9 RxNorm Radha Ward [facility] 10:17:34 Medications Name Sig Start Date Stop Date Status Note LastModified by Organization Details LastModified Time Prescript ion - Prior Authoriza tion Request active Not Available Not Available Not Available trazodone 50 mg tablet take 1 tablet by oral route 3 times every day after meals 07/11 completed Prescrib ed Elsewher e: Yes Loca tion: [facility] odify By: nadege ansari DateTime : 04/27/19 18 10:45:00 AM Not Available Not Available Not Available potassium gluconate 2.5 mEq tablet 07/11 completed Prescrib ed Elsewher e: Yes Loca tion: [facility] odify By: lin ansari DateTime : [...] Prescrib ed Elsewher e: Yes Loca tion: [facility] odify By: lin pérezunter DateTime : [...] Prescrib ed Elsewher e: Yes Loca tion: [facility] odify By: lin ansari DateTime : [...] Prescrib ed Elsewher e: Yes Loca tion: [facility] odify By: lin ansari DateTime : [...] Available Not Available Vitals Date Recorded Body weight Body mass index (BMI) Body height Systolic blood pressure Diastolic blood pressure Provider Name and Address Organization Details Last Updated DateTime 12/09/2023 93328.56 5142 g 27.3 kg/m2 161.29 cm 105 mm[Hg] 73 mm[Hg] Frieda Slater [facility] 10:33:44 Social History Question Answer Notes LastModified by Organizat ion Details LastModified Time Tobacco Smoking Status Current Every Day Smoker Radha Virkse [facility] 07/12/2023 10:31:12 What Is Your Level Of Alcohol Consumption? None Information not available 07/12/2023 If You Are , What Was Your Level Of Alcohol Consumption Prior To ? Occasional [email or web address] Information not available 10/11/2023 How Many Years [...] Or The Highest Degree You Have Received? LO51706-1 Information not available 07/12/2023 What Is Your [...] Much Tobacco Do You Smoke? 1 PPW [email or web address] Information not available 09/06/2023 Do You Feel Stressed (tense, Restless, Nervous, Or Anxious, Or Unable To Sleep At Night)? [id number] Information not available 07/12/2023 Do You Use [...] available 2023 10:30:33 Father Heart disease CHF [email or web address] Not available 09/05 15:57:10 Father Hypercholest erolemia [email or web address] Not available 09/05 15:57:24 Maternal Grandfather Hypertensive disorder Not available 2023 10:30:33 Maternal Grandfather Malignant tumor of prostate [email or web address] Not available 2023 09:56:27 Maternal Grandfather Hypercholest erolemia [email or web address] Not available 09/05 15:57:24 Medical History Condition [...] Diagnosis/Indication Diagnosis SNOMED-CT Code Diagnosis ICD10 Code [id number] Pina De La O [facility] [address] [address] 11/12/2023 15:24:03 11/12/2023 16:20:09 Placental condition affecting management of mother 973867609 O43.102 Z3A.25 [id number] Dameon Yepez MD [facility] [address] [address] 11/12/2023 15:24:34 11/12/2023 16:44:56 Urinary tract infectious disease 01604272 N39.0 Routine an tenatal care 175205463 Z34.02 [id number] Pina De La O [facility] [address] [address] 12/09/2023 09:45:35 12/09/2023 10:34:29 Placental condition affecting management of mother 858937806 O43.103 Z3A.29 [id number] Dameon Yepez MD [facility] [address] [address] 12/09/2023 09:45:55 12/09/2023 11:16:25 Routine care 575555987 Z34.02 Health Concerns Section Related Observation LastModified by Organization Detai ls LastModified Time None Recorded Concern Status LastModified by Organization Details LastModified Time None Recorded Payers Encounter Date Sequence Insurance Name Policy Number Policy Mcdonald Covered Member ID Mcdonald Member ID Guarantor Name 12/09/2023 1 [facility] ON OR AFTER 09/05/20 (MEDICAID REPLACEMENT - HMO) Alma Vinson [id number] Alma Vinson OBGyn Episode Ob Episode Information Episode Created Date Number of Fetuses Patient Bloodtype Patient rh Status Prepregnancy Weight lbs Domestic Partner Domestic Partner Phone 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 08/09/19 24 1 O Positive [address] OPEN Fetus Data First Name Last Name Admitted to NICU Weight (g) Sex Living Outcome Pediatric Complications Fetus ID Race Codes Race Delivery Type [id number] Problems Problem Notes Problem Name Start Date End Date Resolution Snomed Code Not e Marginal insertion of umbilical cord 85563917 Mixed anxiety and depressive disorder 10/11/2023 396249669 Anemia 12/13/2023 697056699 1 tab slo wfe daily Justin Calculation [...] Estim ated Date of Delivery false Thalassemia (Latvian, Occitan, Mediterranean, Or Background): MCV < 80 false Neural Tube Defect (Meningomyelocele, Spina Bifi da, Or Anencephaly) false Congenital Heart Defect false Down Syndrome false Luan-Sachs (eg, Mandaeism, Cajun, Greek-[place]) f alse Joni Disease false Sickle Cell Disease Or Trait () false Hemophilia Or Other Blood Disorders false Muscular Dystrophy false Cystic Fibrosis false [place]'s Chorea false Intellectual Disability/Autism false If Yes, [...]
--- OUTSIDE RECORDS SUMMARY | 2024-02-15 06:47 | XMS_ITS | Continuity of Care Document ---
Author Organization [facility] Address [address] [place] [address] Assessment No assessment recorded. Plan of Treatment Reminders Order Date Submit Date Provider Last Modified By Organization Details Last Modified Time Details Appointments INDUCTION 2023 07:00A M LINDA DUNN MD Not available Not available Not available Lab None recorded. Referral None recorded. Procedures None recorded. Surgeries None recorded. Imaging US, obstetric , follow-up 2023 024 [email or web address] [place], [facility] [address], [place], [address], 12/09/2023 17:37:22 Medication Orders None recorded. Patient TargetsNo targets recorded. Patient InstructionsNo instructions recorded. Reason for Referral None Reported. Results Created Date Observation Date Name Description Value Unit Range Abnormal Flag Note LastModifiedBy Organization Detail LastModifiedTime 08/09/19 24 08/09/2023 US, obste tric, nucha l trans lucen cy No observ ation record ed. [email or web address] [place] [address], [place], [address], 08/09/2023 13:09:26 08/09/19 24 08/09/2023 US, obste tric, nucha l trans lucen cy No observ ation record ed. ZULEYKA [address] [address], [place], [address], 08/11/2023 08:08:19 10/11/19 24 10/11/2023 US, obste tric, 2nd or 3rd trime ster No observ ation record ed. [email or web address] [place] [address], [place], [address], 10/11/2023 12:59:17 10/11/19 24 10/11/2023 US, obste tric, 2nd or 3rd trime ster No observ ation record ed. [email or web address] [facility] [address], [place], [address], 10/11/2023 19:52:11 11/12/19 24 11/12/2023 US, obste tric, follo w-up No observ ation record ed. [email or web address] [place] [address], [place], [address], 11/12/2023 16:47:39 11/12/19 24 11/12/2023 US, obste tric, follo w-up No observ ation record ed. ZULEYKA [address], [place], [address], 11/15/2023 12:08:32 12/09/19 24 12/09/2023 US, obste tric, follo w-up No observ ation record ed. [email or web address] [place] [address], [place], [address], 12/09/2023 12:55:34 12/09/1912/09/2023 US, obste tric, follo w-up No observ ation record ed. Z[address]KA [address], [place], [address], 12/10/2023 10:24:16 01/04/2001/04/2024 US, obste tric, follo w-up No observ ation record ed. [email or web address] [place] [address], [place], [address], 01/04/2024 13:22:53 10/01/04/2024 US, obste tric, follo w-up No observ ation record ed. [email or web address] [address] [address], [place], [address], 01/10/2024 12:19:04 02/08/20 24 02/08/2024 US, obste tric, follo w-up No observ ation record ed. [email or web address] [place] [address], [place], [address], 02/08/2024 13:03:42 02/08/20 24 02/08/2024 US, obste tric, follo w-up No observ ation record ed. [email or web address] [facility] [address], [place], [address], 02/08/2024 21:47:09 Result Notes None recorded. Problems Name Problem SNOMED Code Status Onset Date Resolution Date Notes Provider Name and Address Organization Details Recorded Time Mixed anxiety and depressive disorder 516092043 Active 2023 Amber christensen, [facility] 4 10:43:00 23384847 Active 2023 Amber christensen, [facility] 4 10:43:50 Mixed anxiety and depressive disorder 864635884 Active 2023 Amber christensen, [facility] 4 10:43:00 Marginal insertion of umbilical cord 36626740 Active Dameon Yepez MD [address], [place], [address], [facility] 4 18:24:08 Anemia 398948712 Active 2023 1 tab slowfe daily Pablo christensen, [facility] 4 09:57:31 Problem Notes None recorded. Procedures Surgical History Date Name Laterality Status Provider Name and Address Organization Details Recorded Time 05/18/2023 Date of Last Pap Smear completed Radha Ward [facility] 07/12/2023 10:17:42 Imaging Results Imaging Date Name Status LastModified by Organiz ation Details LastModified Time 12/09/2023 US, obstetric, follow-up completed [email or web address] [place] [address], [place], [address], 12/09/2023 12:55:34 12/09/2023 US, obstetric, follow-up completed ZULEYKA [address], [place], [address], 12/10/2023 10:24:16 Procedure Notes None recorded. Medical Equipment None Reported. Allergies Allergen ID Allergen Name Allergen Category Reaction Reaction Severity Criticality Documentation Date Start Date Code Code System Note Provider Name and Address Organization Details Recorded Time 91959 Bactrim medicatio n rash moderate Not available 07/12/2023 42266 9 [facility] 10:17:34 Medications Name Sig Start Date Stop Date Status Note LastModified by Organization Details LastModified Time Prescript ion - Prior Authoriza tion Request active Not Available Not Available Not Available trazodone 50 mg tablet take 1 tablet by oral route 3 times every day after meals 07/11 completed Prescrib ed Elsewher e: Yes Loca tion: [facility] odify By: nadege Tobias ncounter DateTime : 04/27/19 18 10:45:00 AM Not Available Not Available Not Available potassium gluconate 2.5 mEq tablet 07/11 completed Prescrib ed Elsewher e: Yes Loca tion: [facility] odify By: lin Tobias ncounter DateTime : [...] Elsewher e: Yes Loca tion: Dusty tobias [facility] odify By: lin ansari DateTime : [...] ed Elsewher e: Yes Loca tion: [facility] odify By: lin ansari DateTime : [...] Prescrib ed Elsewher e: Yes [facility]: lin ansari DateTime : [...] Address Organization Details Last Updated DateTime 12/09/2023 85859.56 5142 g 27.3 kg/m2 161.29 cm 105 mm[Hg] 73 mm[Hg] Frieda Nohemy [facility] 10:33:44 Social History Question Answer Notes LastModified by Organizat ion Details LastModified Time Tobacco Smoking Status Current Every Day Smoker Radha christensen, [facility] 07/12/2023 10:31:12 What Is Your Level Of Alcohol Consumption? None Information not available 07/12/2023 If You Are , What Was Your Level Of Alcohol Consumption Prior To ? Occasional [email or web address] Information not available 10/11/2023 How Many Years [...] Or The Highest Degree You Have Received? UL24150-1 Information not available 07/12/2023 What Is Your [...] Much Tobacco Do You Smoke? 1 PPW [email or web address] Information not available 09/06/2023 Do You Feel Stressed (tense, Restless, Nervous, Or Anxious, Or Unable To Sleep At Night)? [id number] Information not available 07/12/2023 Do You Use [...] available 2023 10:30:33 Father Heart disease CHF Not available 09/05 15:57:10 Father Hypercholest erolemia [email or web address] Not available 09/05 15:57:24 Maternal Grandfather Hypertensive disorder Not available 2023 10:30:33 Maternal Grandfather Malignant tumor of prostate [email or web address] Not available 2023 09:56:27 Maternal Grandfather Hypercholest erolemia Not available 09/05 15:57:24 Medical History Condition Response Allergies (Food, seasonal, environmental ) Y Other N Blood Transfusion N Drug/Latex Allergies/Reactions N Breast Cancer N Dermatologic Disorders N Lung Disease N [...] Diagnosis/Indication Diagnosis SNOMED-CT Code Diagnosis ICD10 [id number] [facility] [address] [address] 11/12/2023 15:24:03 11/12/2023 16:20:09 Placental condition affecting management of mother 252894393 O43.102 Z3A.25 [id number] Dameon Yepez MD [facility] [address] [address] 11/12/2023 15:24:34 11/12/2023 16:44:56 Urinary tract infectious disease 92241287 N39.0 Routine an tenatal care 806809184 Z34.[id number] [facility] [address],[place] [address] 12/09/2023 09:45:35 12/09/2023 10:34:29 Placental condition affecting management of mother 649730839 O43.103 Z3A.29 [id number] Dameon Yepez MD [place] [address] [address] 12/09/2023 09:45:55 12/09/2023 11:16:25 Routine care 423005848 Z34.02 Health Concerns Section Related Observation LastModified by Organization Detai ls LastModified Time None Recorded Concern Status LastModified by Organization Details LastModified Time None Recorded Payers Encounter Date Sequence Insurance Name Policy Number Policy Mcdonald Covered Member ID Mcdonald Member ID Guarantor Name 12/09/2023 1 [facility] ON OR AFTER 09/05/20 (MEDICAID REPLACEMENT - HMO) Alma Vinson [id number] Alma Vinson OBGyn Episode Ob Episode Information Episode Created Date Number of Fetuses Patient Bloodtype Patient rh Status Prepregnancy Weight lbs Domestic Partner Domestic Partner Phone Father Name Clinical Trial Associate Status 08/09/19 24 1 O Positive [address] OPEN Fetus Data First Name Last Name Admitted to NICU Weight (g) Sex Living Outcome Pediatric Complications Fetus ID Race Codes Race Delivery Type [id number] Problems Problem Notes Problem Name Start Date End Date Resolution Snomed Code Not e Marginal insertion of umbilical cord 45231527 Mixed anxiety and depressive disorder 10/11/2023 103033936 Anemia 12/13/2023 991913480 1 tab slo wfe daily Justin Calculation [...] Estim ated Date of Delivery false Thalassemia (Belarusian, Tanzanian, Mediterranean, Or Background): MCV < 80 false Neural Tube Defect (Meningomyelocele, Spina Bifi da, Or Anencephaly) false Congenital Heart Defect false Down Syndrome false Luan-Sachs (eg, Jainism, Cajun, Bahraini-[place]) f alse Joni Disease false Sickle Cell [...]
--- OUTSIDE RECORDS SUMMARY | 2024-02-15 06:47 | XMS_ITS | Continuity of Care Document ---
Author Organization [facility] Address [address] [place] [address] Assessment Encounter Date Assessment Date Assessment LastModified by Organization Details LastModified Time 01/05/2024 01/05/2024 Patient is ___weeks . Discussed plan. [email or web address] Not available 01/05/2024 18:04:35 Plan of Treatment Reminders Order Date Submit [...] cy No observ ation record ed. [email or web address] [facility] [address], [place], [address], 08/09/2023 13:09:26 08/09/19 24 08/09/2023 US, obste tric, nucha l trans lucen cy No observ ation record ed. ZULEYKA [facility] [address], [place], [address], 08/11/2023 08:08:19 10/11/19 24 10/11/2023 US, obste tric, 2nd or 3rd trime ster No observ ation record ed. [email or web address] [facility] [address], [place], [address], 10/11/2023 12:59:17 10/11/19 24 10/11/2023 US, obste tric, 2nd or 3rd trime ster No observ ation record ed. [email or web address] [facility] [address], [place], [address], 10/11/2023 19:52:11 11/12/19 24 11/12/2023 US, obste tric, follo w-up No observ ation record ed. [email or web address] [facility] [address], [place], [address], 11/12/2023 16:47:39 11/12/19 24 11/12/2023 US, obste tric, follo w-up No observ ation record ed. ZULEYKA [facility] [address], [place], [address], 11/15/2023 12:08:32 12/09/19 24 12/09/2023 US, obste tric, follo w-up No observ ation record ed. [email or web address] [facility] [address], [place], [address], 12/09/2023 12:55:34 12/09/19 24 12/09/2023 US, obste tric, follo w-up No observ ation record ed. ZULEYKA [address] [address], [place], [address], 12/10/2023 10:24:16 01/04/20 24 01/04/2024 US, obste tric, follo w-up No observ ation record ed. [email or web address] [facility] [address], [place], [address], 01/04/2024 13:22:53 01/04/20 24 01/04/2024 US, obste tric, follo w-up No observ ation record ed. [email or web address] [address], [place], [address], 01/10/2024 12:19:04 02/08/20 24 02/08/2024 US, obste tric, follo w-up No observ ation record ed. [email or web address] [facility] [address], [place], [address], 02/08/2024 13:03:42 02/08/20 24 02/08/2024 US, obste tric, follo w-up No observ ation record ed. [email or web address] [address] [address], [place], [address], 02/08/2024 21:47:09 Result Notes None recorded. Problems Name Problem SNOMED Code Status Onset Date Resolution Date Notes Provider Name and Address Organization Details Recorded Time Mixed anxiety and depressive disorder 657622046 Active 2023 Amber christensen, [facility] 4 10:43:00 43319133 Active 2023 Amber christensen, [facility] 4 10:43:50 Mixed anxiety and depressive disorder 958958190 Active 2023 Amber christensen [facility] 4 10:43:00 Marginal insertion of umbilical cord 13626578 Active Dameon Yepez MD [address], [place], [address], [facility] 4 18:24:08 Anemia 483666392 Active 2023 1 tab slowfe daily Pablo christensen, [facility] 4 09:57:31 Problem Notes None recorded. Procedures Surgical History Date Name Laterality Status Provider Name and Address Organization Details Recorded Time 05/18/2023 Date of Last Pap Smear completed Radha Ward [facility] 07/12/2023 10:17:42 Imaging Results None recorded. Procedure Notes None recorded. Medical Equipment None Reported. Allergies Allergen ID Allergen Name Allergen Category Reaction Reaction Severity Criticality Documentation Date Start Date Code Code System Note Provider Name and Address Organization Details Recorded Time 15208 Bactrim medicatio n rash moderate Not available 07/12/2023 50617 9 RxNorm Radha Ward [facility] 10:17:34 Medications Name Sig Start Date Stop Date Status Note LastModified by Organization Details LastModified Time Prescript ion - Prior Authoriza tion Request active Not Available Not Available Not Available trazodone 50 mg tablet take 1 tablet by oral route 3 times every day after meals 07/11 completed Prescrib ed Elsewher e: Yes Loca tion: [facility] odify By: [email or web address] asnari DateTime : 04/27/19 18 10:45:00 AM Not Available Not Available Not Available potassium gluconate 2.5 mEq tablet 07/11 completed Prescrib ed Elsewher e: Yes Loca tion: [facility] odify By: lin ansari DateTime : 02/12/20 [...] Prescrib ed Elsewher e: Yes Loca tion: [facility] odify By: lin pérezunter DateTime : 02/12/20 [...] Prescrib ed Elsewher e: Yes Loca tion: [facility] odify By: lin ansari DateTime : 02/12/20 [...] Prescrib ed Elsewher e: Yes Loca tion: [facility] odify By: lin ansari DateTime : 02/12/20 [...] Not Available Vitals Date Recorded Body weight Systolic blood pressure Diastolic blood pressure Provider Name and Address Organization Details Last Updated DateTime 01/05/2024 84842.3334 2 g 115 mm[Hg] 77 mm[Hg] Sarah Turner [place] - [facility] 01/05/2024 18:06:11 Social History Question Answer Notes LastModified by Organizat ion Details LastModified Time Tobacco Smoking Status Current Every Day Smoker Radha Ward [facility], [facility] 07/12/2023 10:31:12 What Is Your Level Of Alcohol Consumption? None Information not available 07/12/2023 If You Are , What Was Your Level Of Alcohol Consumption Prior To ? Occasional [email or web address] Information not available 10/11/2023 How Many Years [...] Or The Highest Degree You Have Received? [id number] Information not available 07/12/2023 What Is Your [...] Much Tobacco Do You Smoke? 1 PPW [email or web address] Information not available 09/06/2023 Do You Feel Stressed (tense, Restless, Nervous, Or Anxious, Or Unable To Sleep At Night)? EP42192-8 Information not available 07/12/2023 Do You Use [...] available 2023 10:30:33 Father Heart disease CHF [email or web address] Not available 09/05 15:57:10 Father Hypercholest erolemia [email or web address] Not available 09/05 15:57:24 Maternal Grandfather Hypertensive disorder Not available 2023 10:30:33 Maternal Grandfather Malignant tumor of prostate [email or web address] Not available 2023 09:56:27 Maternal Grandfather Hypercholest erolemia [email or web address] Not available 09/05 15:57:24 Medical History Condition [...] Diagnosis/Indication Diagnosis SNOMED-CT Code Diagnosis ICD10 Code 032228 Pina De La O [facility] [address] [address] 12/09/2023 09:45:35 12/09/2023 10:34:29 Placental condition affecting management of mother 134947177 O43.103 Z3A.29 [id number] Dameon Yepez MD [facility] [address] [address] 12/09/2023 09:45:55 12/09/2023 11:16:25 Routine care 202327145 Z34.02 335571 Dameon Yepez MD [facility] [address] [address] 12/24/2023 11:49:27 12/24/2023 12:51:33 Routine care 628429866 Z34.02 501372 Pina De La O [facility] [address] [address] 01/04/2024 10:49:26 01/04/2024 11:21:11 Placental condition affecting management of mother 029803859 O43.103 Z3A.33 150452 Dameon Yepez MD [facility] [address],[facility] [place] [address] 01/05/2024 17:55:26 01/06/2024 18:01:26 Routine care 592312416 Z34.02 Health Concerns Section Related Observation LastModified by Organization Detai ls LastModified Time None Recorded Concern Status LastModified by Organization Details LastModified Time None Recorded Payers Encounter Date Sequence Insurance Name Policy Number Policy Mcdonald Covered Member ID Mcdonald Member ID Guarantor Name 01/05/2024 1 [facility] ON OR AFTER 09/05/20 (MEDICAID REPLACEMENT - HMO) Alma Vinson [id number] Alma Vinson OBGyn Episode Ob Episode Information Episode Created Date Number of Fetuses Patient Bloodtype Patient rh Status Prepregnancy Weight lbs Domestic Partner Domestic Partner Phone Father Name Rn Clinical Resource Status 08/09/19 24 1 O Positive [address] OPEN Fetus Data First Name Last Name Admitted to NICU Weight (g) Sex Living Outcome Pediatric Complications Fetus ID Race Codes Race Delivery Type [id number] Problems Problem Notes Problem Name Start Date End Date Resolution Snomed Code Not e Marginal insertion of umbilical cord 28526229 Mixed anxiety and depressive disorder 10/11/2023 777164371 Anemia 12/13/2023 217823492 1 tab slo wfe daily Justin Calculation [...] Estim ated Date of Delivery false Thalassemia (Solomon Islander, Icelandic, Mediterranean, Or Background): MCV < 80 false Neural Tube Defect (Meningomyelocele, Spina Bifi da, Or Anencephaly) false Congenital Heart Defect false Down Syndrome false Luan-Sachs (eg, Yazdanism, Cajun, Pashto-Gallia) f alse Joni Disease false Sickle Cell [...]
--- OUTSIDE RECORDS SUMMARY | 2024-02-15 06:47 | XMS_ITS | Continuity of Care Document ---
Author Organization [facility] [place] Address [address] [place] [address] Assessment Encounter Date Assessment Date Assessment LastModified by Organization Details LastModified Time 01/21/2024 01/21/2024 Patient is ___weeks . Discussed plan. [email or web address] Not available 01/21/2024 16:16:35 Plan of Treatment Reminders Order Date Submit Date Provider Last Modified By Organization Details Last Modified Time Details Appointments INDUCTION 2023 07:00A June DUNN MD Not available Not available Not available Lab urinalysi s, dipstick 2023 024 [email or web address] [place], [place], [address], 01/21/2024 16:29:17 Referral None recorded. Procedures None recorded. Surgeries None recorded. Imaging None recorded. Medication Orders Macrobid 100 mg capsule 2023 024 [facility], [address] [place], [address], 01/21/2024 17:00:53 Macrobid 100 mg capsule 2023 024 [facility], [address] [place], [address], 01/21/2024 17:00:52 Patient TargetsNo targets recorded. Patient InstructionsNo instructions recorded. Reason for Referral None Reported. Results Created Date Observation Date Name Description Value Unit Range Abnormal Flag Note LastModifiedBy Organization Detail LastModifiedTime 01/21/20 24 01/21/2024 urina lysis , dipst ick Leukocytes ++ Not Available [facility] manny [address], [place], [address], 01/21/2024 16:28:23 01/21/20 24 01/21/2024 urina lysis , dipst ick Protein + Not Available [facility] [address], [place], [address], 01/21/2024 16:28:23 01/21/20 24 01/21/2024 urina lysis , dipst ick pH 5 Not Available [facility] [address], [place], [address], 01/21/2024 16:28:23 01/21/20 24 01/21/2024 urina lysis , dipst ick Blood ++ Not Available [facility] [address], [place], [address], 01/21/2024 16:28:23 01/21/20 24 01/21/2024 urina lysis , dipst ick Specific [place] 1.025 Not Available [facility] [address], [place], [address], 01/21/2024 16:28:23 08/09/19 24 08/09/2023 US, carmina tric, nucha l trans lucen cy No observ ation record ed. [email or web address] [place] [address], [place], [address], 08/09/2023 13:09:26 08/09/19 24 08/09/2023 US, carmina tric, nucha l trans lucen cy No observ ation record ed. ZULEYKA [facility] [address], [place], [address], 08/11/2023 08:08:19 10/11/19 24 10/11/2023 US, obste tric, 2nd or 3rd trime ster No observ ation record ed. [email or web address] [place] [address], [place], [address], 10/11/2023 12:59:17 10/11/19 24 10/11/2023 US, obste tric, 2nd or 3rd trime ster No observ ation record ed. [email or web address] [facility] [address], [place], [address], 10/11/2023 19:52:11 11/12/19 24 11/12/2023 US, obste tric, follo w-up No observ ation record ed. [email or web address] [facility] [address], [place], [address], 11/12/2023 16:47:39 11/12/19 24 11/12/2023 US, obste tric, follo w-up No observ ation record ed. ZULEYKA [facility] [address], [place], [address], 11/15/2023 12:08:32 12/09/1912/09/2023 US, obste tric, follo w-up No observ ation record ed. [email or web address] [facility] [address], [place], [address], 12/09/2023 12:55:34 12/09/1912/09/2023 US, obste tric, follo w-up No observ ation record ed. ZULEYKA [facility] [address], [place], [address], 12/10/2023 10:24:16 01/04/20 24 01/04/2024 US, obste tric, follo w-up No observ ation record ed. [email or web address] [facility] [address], [place], [address], 01/04/2024 13:22:53 01/04/20 24 01/04/2024 US, obste tric, follo w-up No observ ation record ed. [email or web address] [facility] [address], [place], [address], 01/10/2024 12:19:04 02/08/20 24 02/08/2024 US, obste tric, follo w-up No observ ation record ed. [email or web address] [place] [address], [place], [address], 02/08/2024 13:03:42 02/08/20 24 02/08/2024 US, obste tric, follo w-up No observ ation record ed. [email or web address] [address] [address], [place], [address], 02/08/2024 21:47:09 Result Notes None recorded. Problems Name Problem SNOMED Code Status Onset Date Resolution Date Notes Provider Name and Address Organization Details Recorded Time Mixed anxiety and depressive disorder 777524184 Active 2023 Amber christensen, [facility] 4 10:43:00 85266488 Active 2023 Amber christensen, [facility] 4 10:43:50 Mixed anxiety and depressive disorder 179908733 Active 2023 Amber christensen, [facility] 4 10:43:00 Marginal insertion of umbilical cord 17020198 Active Dameon Yepez MD [address], [place], [address], [facility] 4 18:24:08 Anemia 872897322 Active 2023 1 tab slowfe daily Pablo christensen, [facility] 4 09:57:31 Problem Notes None recorded. Procedures Surgical History Date Name Laterality Status Provider Name and Address Organization Details Recorded Time 05/18/2023 Date of Last Pap Smear completed Radha Ward [facility] 07/12/2023 10:17:42 Imaging Results None recorded. Procedure Notes None recorded. Medical Equipment None Reported. Allergies Allergen ID Allergen Name Allergen Category Reaction Reaction Severity Criticality Documentation Date Start Date Code Code System Note Provider Name and Address Organization Details Recorded Time 94667 Bactrim medicatio n rash moderate Not available 07/12/2023 88699 9 RxNorm Radha Ward [facility] 10:17:34 Medications Name Sig Start Date Stop Date Status Note LastModified by Organization Details LastModified Time Prescript ion - Prior Authoriza tion Request active Not Available Not Available Not Available trazodone 50 mg tablet take 1 tablet by oral route 3 times every day after meals 07/11 completed Prescrib ed Elsewher e: Yes Loca tion: [facility] odify By: amnorma pérezunter DateTime : 04/27/19 18 10:45:00 AM Not Available Not Available Not Available potassium gluconate 2.5 mEq tablet 07/11 completed Prescrib ed Elsewher e: Yes Loca tion: [facility] odify By: lin pérezunter DateTime : [...] Prescrib ed Elsewher e: Yes Loca tion: [facility] odify By: lin Lopez ncounter DateTime [...] Prescrib ed Elsewher e: Yes Loca tion: [facility] odify By: lin ansari DateTime : [...] Prescrib ed Elsewher e: Yes Loca tion: [facility] odify By: lin ansari DateTime : [...] Updated DateTime 01/21/2024 161.29 cm 29.8 kg/m2 74679.3 g 116 mm[Hg] 76 mm[Hg] Sarah Johnny [facility] 16:17:44 Social History Question Answer Notes LastModified by Organizat ion Details LastModified Time Tobacco Smoking Status Current Every Day Smoker Radha Ward amparo, [facility] 07/12/2023 10:31:12 What Is Your Level Of Alcohol Consumption? None Information not available 07/12/2023 If You Are , What Was Your Level Of Alcohol Consumption Prior To ? Occasional [email or web address] Information not available 10/11/2023 How Many Years [...] Or The Highest Degree You Have Received? [id number] Information not available 07/12/2023 What Is Your [...] Much Tobacco Do You Smoke? 1 PPW [email or web address] Information not available 09/06/2023 Do You Feel Stressed (tense, Restless, Nervous, Or Anxious, Or Unable To Sleep At Night)? CD42203-8 Information not available 07/12/2023 Do You Use [...] available 2023 10:30:33 Father Heart disease CHF [email or web address] Not available 09/05 15:57:10 Father Hypercholest erolemia [email or web address] Not available 09/05 15:57:24 Maternal Grandfather Hypertensive disorder Not available 2023 10:30:33 Maternal Grandfather Malignant tumor of prostate Not available 2023 09:56:27 Maternal Grandfather Osei saucedoolemia [email or web address] Not available 09/05 15:57:24 Medical History Condition [...] Diagnosis/Indication Diagnosis SNOMED-CT Code Diagnosis ICD10 Code 111999 Dameon Yepez MD [place] [address] [address] 12/24/2023 11:49:27 12/24/2023 12:51:33 Routine care 934943645 Z34.02 904350 Pina De La O [place] [address] [address] 01/04/2024 10:49:26 01/04/2024 11:21:11 Placental condition affecting management of mother 915701421 O43.103 Z3A.33 [id number] Dameon Yepez MD [facility] [address] [address] 01/05/2024 17:55:26 01/06/2024 18:01:26 Routine care 498232943 Z34.02 511641 Dameon Yepez MD [facility] [address] [address] 01/21/2024 16:07:49 01/25/2024 01:13:38 Pain in pelvis 18595328 R10.2 Urinary tr act infectious disease 87849620 N39.0 Health Concerns Section Related Observation LastModified by Organization Detai ls LastModified Time None Recorded Concern Status LastModified by Organization Details LastModified Time None Recorded Payers Encounter Date Sequence Insurance Name Policy Number Policy Mcdonald Covered Member ID Mcdonald Member ID Guarantor Name 01/21/2024 1 [facility] - DOS ON OR AFTER 20 (MEDICAID REPLACEMENT - HMO) Alma Vinson [id number] Alma Vinson OBGyn Episode Ob Episode Information Episode Created Date Number of Fetuses Patient Bloodtype Patient rh Status Prepregnancy Weight lbs Domestic Partner Domestic Partner Phone Father Name Hot Dip Tinning Supervisor Status 08/09/19 24 1 O Positive [address] OPEN Fetus Data First Name Last Name Admitted to NICU Weight (g) Sex Living Outcome Pediatric Complications Fetus ID Race Codes Race Delivery Type [id number] Problems Problem Notes Problem Name Start Date End Date Resolution Snomed Code Not e Marginal insertion of umbilical cord 10263621 Mixed anxiety and depressive disorder 10/11/2023 894554359 Anemia 12/13/2023 543935390 1 tab slo wfe daily Justin Calculation [...] Estim ated Date of Delivery false Thalassemia (Occitan, Liberian, Mediterranean, Or Background): MCV < 80 false Neural Tube Defect (Meningomyelocele, Spina Bifi da, Or Anencephaly) false Congenital Heart Defect false Down Syndrome false Luan-Sachs (eg, Mosque, Cajun, Guinean-Spanish) f alse Joni Disease false Sickle Cell Disease Or Trait () false Hemophilia Or Other Blood Disorders false Muscular Dystrophy false Cystic Fibrosis false Harwick's Chorea false Intellectual Disability/Autism false If Yes, [...]
[2024-02-15 08:06] LABS: Basophils Percent Auto 0.3 % (0.2-1.2); Eosinophils Absolute Auto 0.1 K/mm3 (0-0.3); Eosinophils Percent Auto 1.1 % (0-4.4); Hematocrit 33.7 % (37.0-47.0); Hemoglobin 10.5 g/dL (12.0-15.0); Immature Granulocyte Absolute 0.05 K/mm3 (0.00-0.031); Immature Granulocyte Percent A 0.5 % (0-0.5); Mean Corpuscular HGB Conc 31.2 g/dl (32-36); Mean Corpuscular Hemoglobin 26.4 pg (26-34); Mean Corpuscular Volume 84.7 fl (80-100); Mean Platelet Volume 11.7 fl (7.4-10.4); Monocytes Absolute Auto 0.7 K/mm3 (0.1-0.6); Monocytes Percent Auto 7.6 % (2.6-8.5); Neutrophils Percent Auto 65.5 % (45.5-73.1); Platelet Count Result 203 k/mm3 (150-375); Red Blood Count 3.98 M/mm3 (4.2-5.4); Red Cell Distribution Width 14.8 % (11.5-14.5); White Blood Count 9.2 K/mm3 (4.5-10.0)
--- NOTE | 2024-02-15 08:36 | LDADM ---
This patient, Alma Vinson, was admitted to Labor/Delivery/Recovery 103 on 02/15/24 at 06:25. Plans for labor, pain management and were discussed with patient. Patient/family oriented to hospital policies and general routines including ID bracelet, bed and alarms, visiting hours, pain management, procedures, bathroom and other care routines, personal items, smoking policy, room service/diet and guest tray routines, infant security routines, and visiting hours. Patient/Family are encouraged to report perceived risks to care and to ask questions if they do not understand what they are told or what they should do. See OBIX for further documentation.
[2024-02-15 08:39] LABS: Rapid Plasma Reagin Non-Reactive (NonReactive)
[2024-02-15 09:00] LABS: HIV 1/2 Ab P24 Ag Result Negative (Negative)
[2024-02-15] MEDS: miSOPROStol 25 MCG TABLET 50 MCG BUCCAL (09:09)
[2024-02-15] MEDS: FAMOTIDINE 20 MG/2 ML VIAL IV PUSH ×2 (10:32→20:52)
--- NOTE | 2024-02-15 12:42 | PM.IMHP ---
H&P: HPI History of Present Illness Date/Time: 02/15/24 12:42 Chief Complaint: elective induction of labor Narrative: Patient is a 23 year old G1 at 39w3d who presents for elective induction of labor. Her has been overall uncomplicated. She denies strong contractions, leakage of fluid, or vaginal bleeding. She reports good movement. Denies nausea, vomiting, diarrhea, dysuria or abdominal pain. Review of Systems Review of Systems: All systems reviewed & are unremarkable except as noted in HPI and below PMFSH Family History Family History Other No pertinent family history Social History Social History Smoking status: Never smoker Tobacco type: e-cigarettes/vaping Alcohol intake: never Substance use: never Do You Feel Safe in your Home?: Yes Lack of Transportation: No Lack of Food: Never True Current Housing: I Have Housing Concerned About Future Housing: No Difficulty Paying Gas/Electric Bills: No Difficulty Paying for Meds: No Currently Unemployed: No Education: High School Diploma/GED Difficulty w/ Childcare or Family Care: No Living arrangements: with family Occupation/Education: student Gender identity (if verbalized by the patient): Female Spiritual care concerns: No Meds Home Medications and Allergies Home Medications ?Medication ?Instructions ?Recorded ?Confirmed ?Type cetirizine 10 mg tablet (Zyrtec) 10 mg PO DAILY 02/14/24 02/15/24 History ferrous sulfate 325 mg (65 mg 325 mg PO DAILY 02/14/24 02/15/24 History iron) tablet nitrofurantoin 100 mg PO DAILY 02/14/24 02/15/24 History monohydrate/macrocrystals 100 mg capsule (Macrobid) Allergies Allergy/AdvReac Type Severity Reaction Status Date / Time sulfamethoxazole (From Allergy Rash Verified 02/14/24 12:32 Bactrim) trimethoprim (From Bactrim) Allergy Rash Verified 02/14/24 12:32 Vital Signs Vital Signs - 24 hr 02/15/24 08:00 02/15/24 08:25 02/15/24 08:29 Temperature 97.9 F Pulse Rate 97 Blood Pressure 127/79 Oxygen Delivery Room Air 02/15/24 08:37 02/15/24 08:41 Temperature Pulse Rate 97 Blood Pressure 127/79 Oxygen Delivery Room Air Exam Const: General: comfortable and no acute distress HENMT: Mouth: Yes moist mucous membranes Eyes: General: appearance normal, both eyes and all related structures Resp: Effort & Inspection: normal respiratory effort Cardio: Rate: regular rate Rhythm: regular rhythm H&P: Results Labs Labs: Short CBC 02/15/24 Range/Units 07:53 WBC 9.2 (4.5-10.0) K/mm3 Hgb 10.5 L D (12.0-15.0) g/dL Hct 33.7 L (37.0-47.0) % Plt Count 203 (150-375) k/mm3 Assessment and Plan Assessment and plan (1) Encounter for elective induction of labor: Code(s): Z34.90 - Encounter for supervision of normal , unspecified, unspecified trimester Status: Acute Assessment and Plan: - uncomplicated - VSS - SVE /-3 per RN - plan for cytotec per protocol - FHR category I
[2024-02-15] MEDS: OXYTOCIN 30 UNITS/NS 500 ML 30 UNITS/500 ML BAG 6 UNITS IV CONT (13:02)
[2024-02-15] MEDS: LACTATED RINGERS 1,000 ML 125 ML IV CONT ×3 (13:02→20:27)
--- NOTE | 2024-02-15 17:00 | P.PNAN_ITS ---
Anes - Initial Pre Proc Eval Procedure: labor epidural Date/Time: 02/15/24 17:00 Surgeon: Avery Romeo MD Pre Op Diagnosis: labor pain Pre Op Diagnosis: IOL Patient Data Age: 23 Gender: F Height: 1.6 m Weight: 82 kg Last Vital Signs Temp 36.6 C 02/15/24 16:00 Pulse 103 H 02/15/24 16:45 BP 123/94 H 02/15/24 16:45 O2 Del Method Room Air 02/15/24 08:41 Allergies Allergy/AdvReac Type Severity Reaction Status Date / Time sulfamethoxazole (From Allergy Rash Verified 02/14/24 12:32 Bactrim) trimethoprim (From Bactrim) Allergy Rash Verified 02/14/24 12:32 Home Medications ?Medication ?Instructions ?Recorded ?Confirmed ?Type cetirizine 10 mg tablet (Zyrtec) 10 mg PO DAILY 02/14/24 02/15/24 History ferrous sulfate 325 mg (65 mg 325 mg PO DAILY 02/14/24 02/15/24 History iron) tablet nitrofurantoin 100 mg PO DAILY 02/14/24 02/15/24 History monohydrate/macrocrystals 100 mg capsule (Macrobid) Laboratory Tests 02/15/24 07:53 WBC 9.2 K/mm3 (4.5-10.0) RBC 3.98 L M/mm3 (4.2-5.4) Hgb 10.5 L D g/dL (12.0-15.0) Hct 33.7 L % (37.0-47.0) MCV 84.7 fl (80-100) MCH 26.4 pg (26-34) MCHC 31.2 L g/dl (32-36) RDW 14.8 H % (11.5-14.5) Plt Count 203 k/mm3 (150-375) MPV 11.7 H fl (7.4-10.4) Immature Gran % (Auto) 0.5 % (0-0.5) Neut % (Auto) 65.5 % (45.5-73.1) Lymph % (Auto) 25.0 % (18.3-44.2) [place] % (Auto) 7.6 % (2.6-8.5) Eos % (Auto) 1.1 % (0-4.4) Baso % (Auto) 0.3 % (0.2-1.2) Lymph # (Auto) 2.30 K/mm3 (0.9-3.2) [place] # (Auto) 0.7 H K/mm3 (0.1-0.6) Eos # (Auto) 0.1 K/mm3 (0-0.3) Baso # (Auto) 0.0 K/mm3 (0.0-0.1) Abs Immat Gran (auto) 0.05 H K/mm3 (0.00-0.031) Absolute Neuts (auto) 6.0 K/mm3 (1.3-6.7) Absolute Nucleated RBC 0.000 K/mm3 (0.0-0.012) Nucleated RBC % 0.0 % (0.0-0.2) RPR Non-reactive (NonReactive) HIV 1&2 Ab/P24 Ag 4thGn Negative (Negative) Blood Type O Positive Antibody Screen Negative Patient hx anesthesia problems: none Family hx anesthesia problems: none Results Review: All pre-operative results and documents have been reviewed as part of the pre- operative evaluation. [facility] Family History Family History Other No pertinent family history Social History Social History Smoking status: Never smoker Tobacco type: e-cigarettes/vaping Alcohol intake: never Substance use: never Do You Feel Safe in your Home?: Yes Lack of Transportation: No Lack of Food: Never True Current Housing: I Have Housing Concerned About Future Housing: No Difficulty Paying Gas/Electric Bills: No Difficulty Paying for Meds: No Currently Unemployed: No Education: High School Diploma/GED Difficulty w/ Childcare or Family Care: No Living arrangements: with family Occupation/Education: student Gender identity (if verbalized by the patient): Female Spiritual care concerns: No Anes - Eval Final PreProcedure Day of Procedure 02/15/24 17:00 Heart: regular rate and rhythm Lungs: clear to auscultation and normal air movement Airway: Mallampati scale Neurological: alert and oriented Results Review: All pre-operative results and documents have been reviewed as part of the pre- operative evaluation. Informed Consent: The patient's anesthetic plan and its attendant risks and benefits were discussed with the patient/family/POA. Questions were solicited and answers provided to the satisfaction of the patient/family/POA.
--- NOTE | 2024-02-15 18:03 | PM.OBPNLAB ---
Pain Control Date/time seen: 02/15/24 18:03 Pain control: epidural Pelvic Exam Dilation (cm): 5 Effacement (%): 80 station: -2 Amniotic membrane status: Ruptured (meconium) Contractions Monitor mode: External Contraction frequency: 2 Contraction duration: 1 Contraction pattern: Regular Status status: Category l Assessment and Plan Pitocin rate (mU/min): 12 Assessment: induction ongoing Plan: continuous present management Comments: AROM of meconium stained fluid
[2024-02-15] MEDS: METHYLERGONOVINE MALEATE 0.2 MG/ML VIAL IM (22:53)
--- NOTE | 2024-02-15 22:59 | PM.OBPRVD ---
OB - Vaginal Delivery Note Procedure Delivery date: 02/15/24 Events: Elective Induction of Labor Intrapartal Events: Other (meconium stained fluids) Induction method: Per Misoprostol Protocol Delivery augmentation: Rupture of Membranes and Pitocin Delivery monitor: External FHT and External Uterine Route of delivery: Episiotomy description: None Specimen: No Anesthesia type: Epidural Disposition: Floor Complications: No immediate complications Narrative: See H&P and notes for details on patient's admission and labor. She progressed to complete cervical dilation and at the appropriate time began pushing. With adequate expulsive efforts by the mother, the baby's head was delivered without difficulty. Nuchal cord was not present. The baby's right shoulder was anterior and did not easily deliver. A shoulder dystocia was identified. The patient was placed in Steven and suprapubic pressure was applied. A posterior arm shrug was performed and the anterior shoulder delivered under the pubic symphysis without difficulty. The posterior shoulder and the rest of the baby delivered without difficulty. The umbilical cord was doubly clamped and cut immediately. Care of the infant was then assumed by the nursing staff. At the end of the procedure, mild uterine atony was noted, which improved with bimanual massage and methergine IM. After evaluation by the hospice care transitions coordinator, the baby was brought back skin to skin with the patient. Infant was noted to be moving all extremities equally. Baby Date of : 02/15/24 Gestational Age by Date: 39 Infant gender: Female presentation: vertex position: Left Occiput Anterior Placenta delivery description: Expressed Cord Vessel Description: 3 Vessels and Clamped/Cut
[2024-02-15] MEDS: OXYTOCIN 30 UNITS/NS 500 ML 30 UNITS/500 ML BAG 125 UNITS IV CONT (23:12)
[2024-02-16] VITALS: BP 131/81; PULSE 88
[2024-02-16 00:30] VITALS: BP 129/79; PULSE 98
[2024-02-16] MEDS: WITCH HAZEL 40 PADS 1 PAD TOPICAL (00:47)
[2024-02-16] MEDS: BENZOCAINE 20% AER SPR (*SP) 56 GM CAN 1 SPRAY TOPICAL (00:47)
--- NOTE | 2024-02-16 01:45 | OBPPTRN ---
Patient transferred to post room #291 via wheelchair. Support person present. Oriented to unit, room, information board, rooming in, admission packet and security measures. Patient verbalizes understanding.
[2024-02-16 02:45] VITALS: BP 124/79; PULSE 105; RESP 18; TEMP 36.8; O2SAT 98
[2024-02-16] MEDS: IBUPROFEN 600 MG TABLET PO ×2 (02:46→11:29)
[2024-02-16 05:54] LABS: Hematocrit 30.9 % (37.0-47.0); Hemoglobin 9.7 g/dL (12.0-15.0)
[2024-02-16] MEDS: DOCUSATE SODIUM 100 MG CAPSULE PO ×2 (06:57→16:10)
[2024-02-16] MEDS: MULTIVIT/MIN/PREN/FOL AC/IRON TABLET 1 TAB PO (06:57)
[2024-02-16] MEDS: ACETAMINOPHEN 325 MG TABLET 650 MG PO ×3 (07:41→22:15)
[2024-02-16 07:53] VITALS: BP 125/75; PULSE 95; RESP 17; TEMP 36.9; O2SAT 99
[2024-02-16] MEDS: POLYSACCHARIDE IRON COMPLEX 150 MG CAPSULE PO ×2 (08:04→16:10)
[2024-02-16 12:09] VITALS: BP 111/77; PULSE 90; RESP 16; TEMP 37.1; O2SAT 99
--- NOTE | 2024-02-16 14:50 | WPDANLDPN2 ---
Anes-Prog Note L&D Date/Time: 02/16/24 14:50 Comfortable throughout: labor and delivery Neuraxial method: epidural Epidural/Spinal procedure site: clean & non-tender Neuro status: Neuro function grossly intact. Cardiovascular status: normal Respiratory status: normal Airway patency: baseline Mental status: baseline Post-Op hydration status: normal Vital Signs: Last Vital Signs Temp 98.8 F 02/16/24 12:09 Pulse 90 02/16/24 12:09 Resp 16 02/16/24 12:09 BP 111/77 02/16/24 12:09 Pulse Ox 99 02/16/24 12:09 O2 Del Method Room Air 02/16/24 07:53 Pain score (VAS): 0/10 I/O: Intake & Output 02/15/24 02/16/24 02/16/24 23:59 07:59 15:59 Intake Total 1508.3 Balance 1508.3 Post-procedural complaints: none Patient feedback: Patient satisfied with anesthetic care.
[2024-02-16 20:00] VITALS: BP 109/66; PULSE 88; RESP 16; TEMP 36.8; O2SAT 100
[2024-02-17] MEDS: ACETAMINOPHEN 325 MG TABLET 650 MG PO (05:03)
[2024-02-17 07:30] VITALS: BP 106/60; PULSE 78; RESP 16; TEMP 36.8; O2SAT 100
--- NOTE | 2024-02-17 08:25 | P.PNOB_ITS ---
OB - PN: Subj Subjective Date/time seen: 02/17/24 08:25 Patient comments: no complaints, pain well controlled and tolerating diet OB - PN: Obj Data Labs 02/16/24 05:07 OB - PN A/P Plan day: 2 Plan: routine care and discharge home Time Spent With Patient Time: Total time spent is greater than 50% in coordination of care (as documented) at patient's floor/unit and/or counseling patient: Exam 2 Const: General: comfortable and no acute distress Resp: Effort & Inspection: normal respiratory effort Auscultation: no rales, no rhonchi and no wheezes Cardio: Rate: regular rate Heart sounds: no click, no murmurs and no rubs GI: GI Palp: Yes Soft to palpation and No Tenderness to palpation present (GI) Auscultation: normal bowel sounds Extrem: General: normal to inspection, no pedal edema and no calf tenderness
--- NOTE | 2024-02-17 08:26 | P.DS_ITS ---
DS: Admitting Diagnosis Discharge Date 02/17/24 Admitting Diagnosis term DS: Discharge Diagnosis Discharge Diagnosis (1) Post term , delivered: Code(s): O48.0 - Post-term Status: Acute OB - DS: Summary OB Procedures : None OB Procedures Intrapartum: Spontaneous Vag Delivery OB Procedures: : None Peripartum Data Episiotomy description: None Time Spent with Patient Time attestation: Total time spent providing and/or coordinating discharge services: Discharge Plan Discharge Discharging Clinician: Dameon Yepez Activity: pelvic rest Diet: regular Patient Language: Albanian Discharge Medications: Continued cetirizine [Zyrtec] 10 mg Tablet 10 mg PO DAILY ferrous sulfate 325 mg (65 mg iron) Tablet 325 mg PO DAILY nitrofurantoin monohyd/m-cryst [Macrobid] 100 mg Capsule 100 mg PO DAILY Date of admission: 02/15/24 06:25 Primary Care Provider: PHYSICIAN,ELECTRICAL LINE WORKER Admitting Provider: Avery Romeo Attending physician on admission: Avery Romeo
--- NOTE | 2024-02-17 08:40 | PC.NURSE ---
Introductions were made, then consulted with patient to assess needs related to . Discussed with mother her?plans to feed?her and the?experience so far. Per mother she has her own breast pump at home but she is not sure if she will use or just continue to bottle feed with formula. Resources provided for inpatient and outpatient services with the feeding sheet, mom/baby guide and name written on the communication board. Mother voiced understanding of information and will call if there is a request for assistance. WIC form faxed and placed on chart. Reported to the Primary RN.
[2024-02-17] MEDS: MULTIVIT/MIN/PREN/FOL AC/IRON TABLET 1 TAB PO (08:57)
[2024-02-17] MEDS: POLYSACCHARIDE IRON COMPLEX 150 MG CAPSULE PO (08:57)
[2024-02-17] MEDS: DOCUSATE SODIUM 100 MG CAPSULE PO (08:57)
[2024-02-17] MEDS: IBUPROFEN 600 MG TABLET PO (08:57)
--- NOTE | 2024-02-17 09:37 | PC.NURSE ---
Patient viewed the discharge video Mother & Baby Care, The First Two Weeks . Patient was given the opportunity and encouraged to ask questions. Patient verbalized understanding of information shared and has been given the mother/baby guide for home reference.
[2024-02-19 11:03] VITALS: BP 113/75; PULSE 93; RESP 18; TEMP 36.6; O2SAT 100
== END 2024-02-17 12:00 | disposition home or self-care (01) | DRG 560 ==
LOC: ANHLDR 08:49 → ANHOB2 02-17 09:37 → ANHLDR 02-18 09:15
PROVIDERS: Admitting Provider Obstetrics & Gynecology; Visit Provider Obstetrics & Gynecology
DX: O77.0 Labor and delivery complicated by meconium in amniotic fluid (principal); Z37.0 Single live birth; Z3A.39 39 weeks gestation of pregnancy; O66.0 Obstructed labor due to shoulder dystocia; O75.89 Other specified complications of labor and delivery
CPT/HCPCS: 36415; 85014; 85018; 85025; 86592; 86703; 86850; 86900; 86901; A9270; G0432; J2210; J2590; J2795; J7120

== ENCOUNTER 2024-05-20 11:22 | Emergency (ER) | payer OTHER, SELFPAY ==
[2024-05-20 11:30] VITALS: BP 136/85; PULSE 100; RESP 19; TEMP 37.1; O2SAT 99
--- NOTE | 2024-05-20 11:58 | ED_ITS ---
HPI - URI/Sore Throat General Chief Complaint: Upper Respiratory Infection Stated Complaint: Congestion Time Seen by Provider: 05/20/24 11:58 Source: patient Mode of arrival: ambulatory Limitations: no limitations History of Present Illness HPI Narrative: 23-year-old female presents with complaint of nasal congestion, cough, sore throat, fatigue for 2-3 days. Afebrile. Denies nausea vomiting diarrhea. All systems reviewed and negative except as noted above. Related Data Home Medications ?Medication ?Instructions ?Recorded ?Confirmed ?Last Taken ?Type cetirizine 10 mg tablet (Zyrtec) 10 mg PO DAILY 02/14/24 02/15/24 1 Day Ago History ~02/13/24 ferrous sulfate 325 mg (65 mg 325 mg PO DAILY 02/14/24 02/15/24 1 Day Ago History iron) tablet ~02/13/24 buspirone 5 mg tablet mg 05/20/24 Unknown History escitalopram oxalate 10 mg tablet mg 05/20/24 Unknown History hydroxyzine HCl 25 mg tablet mg 05/20/24 Unknown History medroxyprogesterone 150 mg/mL mg IM 05/20/24 Unknown History intramuscular syringe sertraline 25 mg tablet mg 05/20/24 Unknown History Allergies Allergy/AdvReac Type Severity Reaction Status Date / Time sulfamethoxazole (From Allergy Rash Verified 02/14/24 12:32 Bactrim) trimethoprim (From Bactrim) Allergy Rash Verified 02/14/24 12:32 Review of Systems Review of Systems: CONSTITUTIONAL: Denies fever, chills, or sweats. EYES: Denies visual changes, redness, or discharge. ENT: Reports rhinorrhea, congestion, sore throat. Denies otalgia. CARDIOVASCULAR: Denies chest pain, palpitations, or edema. RESPIRATORY: reports cough. Denies dyspnea. GASTROINTESTINAL: Denies abdominal pain, nausea, vomiting, or diarrhea. GENITOURINARY: Denies dysuria or hematuria. SKIN: Denies rash or itching. MUSCULOSKELETAL: Denies back pain, joint pain, or myalgia. NEUROLOGIC: Denies headache, numbness, or weakness. PSYCHIATRIC: Denies anxiety or depression. All other systems reviewed are negative, except as documented in HPI. [facility] Family History Family History Other No pertinent family history Social History Social History Smoking status: Never smoker Tobacco type: e-cigarettes/vaping Alcohol intake: never Substance use: never Do You Feel Safe in your Home?: Yes Lack of Transportation: No Lack of Food: Never True Current Housing: I Have Housing Concerned About Future Housing: No Difficulty Paying Gas/Electric Bills: No Difficulty Paying for Meds: No Currently Unemployed: No Education: High School Diploma/GED Difficulty w/ Childcare or Family Care: No Living arrangements: with family Occupation/Education: student Gender identity (if verbalized by the patient): Female Spiritual care concerns: No Comments At time of signature, agree with nursing past medical, surgical, social and family history. There is no relevant family history pertinent to the presenting complaint. Exam Narrative: GENERAL: This is a well-nourished, well-developed patient, in no apparent distress. HEAD: normocephalic, atraumatic. EYES: PERRL. Sclera clear/white. Vision is grossly intact. EARS: External ears normal, auditory canals clear and without drainage, TMs normal without perforation. Hearing grossly intact. NOSE: External nose normal with mild congestion with clear nasal drainage THROAT: Mucous membranes moist, erythema clear postnasal drainage. No swelling or exudates NECK: Neck supple, non-tender without lymphadenopathy, masses or thyromegaly. CARDIOVASCULAR: Regular rate and rhythm without murmurs, gallops, or rubs. RESPIRATORY: Clear to auscultation. Breath sounds equal bilaterally. No wheezes, rales, or rhonchi. SKIN: warm, Dry, intact with no suspicious lesions or rash, good texture and turgor. NEURO: awake, alert, and oriented to person, place and time. There were no obvious focal neurologic abnormalities. EXTREMITIES: No joint tenderness, effusion, or edema noted. Course Course Level of Care: Express Care Visit Vital Signs Vital signs: Vital Signs Temperature 37.1 C 05/20/24 11:30 Pulse Rate 100 05/20/24 11:30 Respiratory Rate 19 05/20/24 11:30 Blood Pressure 136/85 05/20/24 11:30 Pulse Oximetry 99 05/20/24 11:30 Oxygen Delivery Room Air 05/20/24 11:30 Temperature 37.1 C 05/20/24 11:30 Pulse Rate 100 05/20/24 11:30 Respiratory Rate 19 05/20/24 11:30 Blood Pressure 136/85 05/20/24 11:30 Pulse Oximetry 99 05/20/24 11:30 Oxygen Delivery Room Air 05/20/24 11:30 reviewed MDM - URI/Sore Throat MDM Narrative Medical decision making narrative: positive COVID. Recommend [id number] medications to treat viral symptoms. Patient is well-appearing, nontoxic. Lungs clear to auscultation. Please be advised this is a medical document. It is intended for [id number] communication. It is written in medical language and may contain unfamiliar abbreviations or verbiage. Medical documents are intended to carry relevant information, facts as evident, and the clinical opinion of the practitioner at the time of the encounter. This report may have been done utilizing a voice recognition system. Attempts have been made to correct errors. However, there may be uncorrected grammatical, spelling, and recognition errors present. The file time of this note does not ne cessarily represent the time of service. Differential Diagnosis Differential diagnosis: Likely upper respiratory infection, sinusitis, viral infection, influenza, pharyngitis and other ( COVID-19) Discharge Plan Discharge Clinical Impression: COVID-19 Patient Disposition: Home, Self-Care Condition: Stable Instructions: COVID-19 (Coronavirus Disease 2019) (ED) Additional Instructions: your COVID test was positive today. COVID is a virus and symptoms may last 10-14 days. Purchase [id number] DayQuil NyQuil cold and flu and take as directed on packaging. Take ibuprofen every 6-8 hours as needed for pain and fever. Drink at least 64 oz of water a day. Follow-up with your primary care physician as needed. Patient Language: Bruneian Prescriptions: No Action buspirone 5 mg tablet sertraline 25 mg tablet hydroxyzine HCl 25 mg tablet medroxyprogesterone 150 mg/mL syringe IM escitalopram oxalate 10 mg tablet cetirizine [Zyrtec] 10 mg Tablet 10 mg PO DAILY ferrous sulfate 325 mg (65 mg iron) Tablet 325 mg PO DAILY Follow-up/Referrals: PHYSICIAN,CELL CHANGER [Primary Care Provider] - Time of Disposition: 12:05
[2024-05-20 12:13] LABS: EDCOVIDSCREEN Positive (Negative); EDINFLUASCREEN Negative (Negative); EDINFLUBSCREEN Negative (Negative); EDSTREPNEGPOS1 Negative (Negative)
== END 2024-05-20 12:08 | disposition home or self-care (01) ==
PROVIDERS: Emergency Provider Nurse Practitioner Family
DX: U07.1 COVID-19 (principal)
CPT/HCPCS: 87081; 87426; 87804; 87880; 99213; G0463

== ENCOUNTER 2024-10-20 10:28 | Emergency (ER) | payer OTHER, SELFPAY ==
[2024-10-20 10:36] VITALS: BP 119/74; PULSE 78; RESP 16; TEMP 36.8; O2SAT 99
--- NOTE | 2024-10-20 10:42 | ED.SKABFB ---
HPI - Skin/Abscess/Foreign Bdy General Chief complaint: Skin/Abscess/Foreign Body Stated complaint: Rash On Back Time Seen by Provider: 10/20/24 11:32 Source: patient and RN notes reviewed Mode of arrival: ambulatory Limitations: no limitations History of Present Illness HPI narrative: 24-year-old female presents with concern for rash on her back for 2 days. She reports that is not very itchy. She has been taking several medications, she is taking doxycycline, fluconazole and Diflucan for both BV and chlamydia. She has taken fluconazole and Diflucan before, she has never taken doxycycline. She has 1 more tablet of doxycycline left take. She denies swollen lips, swollen tongue, trouble breathing, nausea, vomiting, diarrhea, fever. MD complaint: rash Related Data Home Medications ?Medication ?Instructions ?Recorded ?Confirmed ?Last Taken ?Type doxycycline hyclate 100 mg tablet 100 mg 10/20/24 Unknown History Allergies Allergy/AdvReac Type Severity Reaction Status Date / Time sulfamethoxazole (From Allergy Rash Verified 10/20/24 11:19 Bactrim) trimethoprim (From Bactrim) Allergy Rash Verified 10/20/24 11:19 Review of Systems Review of Systems: CONSTITUTIONAL: Denies malaise, chills, sweats, or fever. EYES: Denies redness, or discharge. ENT: Denies rhinorrhea, congestion, swollen lips, swollen tongue CARDIOVASCULAR: Denies chest pain, palpitations, or edema. RESPIRATORY: Denies cough or dyspnea. GASTROINTESTINAL: Denies abdominal pain, nausea, vomiting SKIN: Reports rash on her back MUSCULOSKELETAL: Denies joint pain or myalgia. NEUROLOGIC: Denies headache. All systems reviewed & are unremarkable except as noted in HPI and below [facility] Family History Family History Other No pertinent family history Social History Social History Smoking status: Never smoker Tobacco type: e-cigarettes/vaping Alcohol intake: never Substance use: never Do You Feel Safe in your Home?: Yes Lack of Transportation: No Lack of Food: Never True Current Housing: I Have Housing Concerned About Future Housing: No Difficulty Paying Gas/Electric Bills: No Difficulty Paying for Meds: No Currently Unemployed: No Education: High School Diploma/GED Difficulty w/ Childcare or Family Care: No Living arrangements: with family Occupation/Education: student Gender identity (if verbalized by the patient): Female Spiritual care concerns: No Comments At time of signature, agree with nursing past medical, surgical, social and family history. There is no relevant family history pertinent to the presenting complaint Exam Narrative: GENERAL: Well-appearing, well-nourished, and in no acute distress. HEAD: Normocephalic, atraumatic. EYES: PERRLA, conjunctivae clear, and EOMI. ENT: Mucous membranes moist. Oropharynx without edema, erythema or lesions. NECK: Supple. No lymphadenopathy CHEST: Clear to auscultation. No respiratory distress. HEART: Regular rate and rhythm. SKIN: Warm, dry. Discrete papular rash isolated to the back NEURO: Alert and oriented x3. PSYCH: Normal mood and affect Course Course Emergency Course: Patient is aware of diagnosis, understands and agrees to treatment plan. Anticipatory guidance given. Patient agrees to follow-up as directed and is aware of reasons to seek care at the emergency department. Portions of this record may have been created with voice recognition software Level of Care: Express Care Visit Vital Signs Vital signs: Vital Signs Temperature 98.3 F 10/20/24 10:36 Pulse Rate 78 10/20/24 10:36 Respiratory Rate 16 10/20/24 10:36 Blood Pressure 119/74 10/20/24 10:36 Pulse Oximetry 99 10/20/24 10:36 Oxygen Delivery Room Air 10/20/24 10:36 Temperature 98.3 F 10/20/24 10:36 Pulse Rate 78 10/20/24 10:36 Respiratory Rate 16 10/20/24 10:36 Blood Pressure 119/74 10/20/24 10:36 Pulse Oximetry 99 10/20/24 10:36 Oxygen Delivery Room Air 10/20/24 10:36 Reviewed. MDM - Skin/Abscess/Foreign Bdy MDM Narrative Medical decision making narrative: Does not appear at this time to be erythema multiforme, bullous, SJS, TEN; no evidence at this time to suggest RMSF, endocarditis or Lyme disease; patient looks well, nontoxic and is tolerating oral intake; no neurologic signs or symptoms; no headache, photophobia or neck pain; afebrile; appropriate for initial outpatient treatment; discussed the importance of follow-up, patient agrees; question, viral exanthema, contact dermatitis, allergic dermatitis, eczema, urticaria, allergic reaction. No soft palate or uvula edema, no tongue, lip edema or other mucosal involvement, no respiratory compromise, no stridor, no wheezing, no wheezing, no history of syncope, no hypotension, no nausea, vomiting, or diarrhea. Instructed patient to go to nearest ER immediately for any worsening symptoms including but not limited to: fever, spreading rash, pain, sore throat, headache, dizziness, chest pain, trouble breathing, or any symptoms concerning to the patient. Critical Care Time Critical Care Time Critical Care Time: No Discharge Plan Discharge Clinical Impression: Rash Patient Disposition: Home Condition: Stable Instructions: Acute Rash (ED) Additional Instructions: Wash the area with gentle soap and water only. Use skin cream as prescribed to reduce itchiness Avoid scratching when possible to prevent worsening of the condition and disruption of the skin that could lead to bacterial infection To relieve itching, place a cool washcloth or some ice over the area that itches, rather than scratching Follow up with primary care provider or seek ER if you have trouble breathing, become hoarse, or start wheezing, develop belly cramps, vomiting or feel dizzy. Patient Language: Slovenian Prescriptions: New hydrocortisone 0.5 % cream 1 applic topical BID PRN (Reason: itching) Qty: 28.4 0RF No Action doxycycline hyclate 100 mg tablet 100 mg Follow-up/Referrals: PHYSICIAN,MAIL ORDER SORTER [Primary Care Provider] - Stand Alone Forms: Work/School Release IP Time of Disposition: 11:40
== END 2024-10-20 11:46 | disposition home or self-care (01) ==
PROVIDERS: Emergency Provider Nurse Practitioner
DX: R21 Rash and other nonspecific skin eruption (principal)
CPT/HCPCS: 99213; G0463

== ENCOUNTER 2024-12-27 14:29 | Emergency (ER) | payer OTHER, SELFPAY ==
[2024-12-27 14:39] VITALS: BP 128/69; PULSE 75; RESP 18; TEMP 36.7; O2SAT 99
--- NOTE | 2024-12-27 15:01 | ED_ITS ---
HPI - General Adult General Chief complaint: Unspecified Stated complaint: Possibly Exposure To Black Mold Time Seen by Provider: 12/27/24 14:50 Source: patient and RN notes reviewed Mode of arrival: ambulatory Limitations: no limitations History of Present Illness HPI narrative: 24-year-old female presents to the [facility] complaining of exposure to black mold. 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 2 of her coworkers he says recently diagnosed with asthma after exposure. Patient wants to make sure she does not have asthma. Patient does not have a PCP. Patient denies any symptoms or past medical problems. Patient reports he does vape. Related Data Home Medications ?Medication ?Instructions ?Recorded ?Confirmed ?Last Taken ?Type buspirone 10 mg tablet mg 12/27/24 Unknown History escitalopram oxalate 20 mg tablet mg 12/27/24 Unknown History Allergies Allergy/AdvReac Type Severity Reaction Status Date / Time sulfamethoxazole (From Allergy Rash Verified 12/27/24 14:47 Bactrim) trimethoprim (From Bactrim) Allergy Rash Verified 12/27/24 14:47 Review of Systems Review of Systems: CONSTITUTIONAL: Denies fever, chills, or sweats. EYES: Denies visual changes, redness, or discharge. ENT: Denies rhinorrhea, congestion, sore throat, or otalgia. CARDIOVASCULAR: Denies chest pain, palpitations, or edema. RESPIRATORY: Denies cough or dyspnea. GASTROINTESTINAL: Denies abdominal pain, nausea, vomiting, or diarrhea. GENITOURINARY: Denies dysuria or hematuria. SKIN: Denies rash or itching. MUSCULOSKELETAL: Denies back pain, joint pain, or myalgia. NEUROLOGIC: Denies headache, numbness, or weakness. PSYCHIATRIC: Denies anxiety or depression. All other systems reviewed are negative, except as documented in HPI. [facility] Family History Family History Other No pertinent family history Social History Social History Smoking status: Never smoker Tobacco type: e-cigarettes/vaping Alcohol intake: never Substance use: never Do You Feel Safe in your Home?: Yes Lack of Transportation: No Lack of Food: Never True Current Housing: I Have Housing Concerned About Future Housing: No Difficulty Paying Gas/Electric Bills: No Difficulty Paying for Meds: No Currently Unemployed: No Education: High School Diploma/GED Difficulty w/ Childcare or Family Care: No Living arrangements: with family Occupation/Education: student Gender identity (if verbalized by the patient): Female Spiritual care concerns: No Comments At the time of my signature, I reviewed and agree with the nursing past medical, surgical, social, and family history. There is no relevant family history pertinent to the patient complaint. Exam Narrative: GENERAL: This is a well-nourished, well-developed adult, in no apparent distress. They are non ill-appearing, nontoxic appearing. HEAD: normocephalic, atraumatic. EYES: Sclera clear/white. Conjunctiva normal. Vision is grossly intact. Extraocular movements intact EARS: External ears normal, auditory canals clear and without drainage, TMs normal without perforation. Hearing grossly intact. NOSE: External nose normal with no obvious nasal discharge, nasal turbinates without redness, no rhinorrhea. THROAT: Mucous membranes moist, posterior pharynx clear, without erythema or swelling. Uvula midline. NECK: Neck supple, non-tender without lymphadenopathy, masses or thyromegaly. CARDIOVASCULAR: Regular rate and rhythm without murmurs, gallops, or rubs. RESPIRATORY: Clear to auscultation. Breath sounds equal bilaterally. No wheezes, rales, or rhonchi. Respiratory rate normal, respiratory effort nonlabored, no respiratory distress SKIN: warm, Dry, intact with no suspicious lesions or rash, good texture and turgor. NEURO: awake, alert, and oriented to person, place and time. There were no obvious focal neurologic abnormalities. EXTREMITIES: No joint tenderness, effusion, or edema noted. BACK: Nontender without deformity. No CVA tenderness. Course Course Emergency Course: Portions of this record may have been created with voice recognition software Level of Care: Express Care Visit Vital Signs Vital signs: Vital Signs Temperature 98.1 F 12/27/24 14:39 Pulse Rate 75 12/27/24 14:39 Respiratory Rate 18 12/27/24 14:39 Blood Pressure 128/69 12/27/24 14:39 Pulse Oximetry 99 12/27/24 14:39 Oxygen Delivery Room Air 12/27/24 14:39 Temperature 98.1 F 10/22/25 14:39 Pulse Rate 75 12/27/24 14:39 Respiratory Rate 18 12/27/24 14:39 Blood Pressure 128/69 12/27/24 14:39 Pulse Oximetry 99 12/27/24 14:39 Oxygen Delivery Room Air 12/27/24 14:39 Reviewed Medical Decision Making MDM Narrative Medical decision making narrative: Patient nontoxic-appearing, no apparent distress, vital signs hemodynamically stable, normal oxygen saturations on room air. Patient's lungs are clear to auscultation. Physical exam reassuring. Patient denies any symptoms of asthma denies any wheezing, shortness of breath or any history of asthma. Patient does not appear to have asthma today. Informed patient we cannot adequately diagnosis asthma here and that she would likely need pulmonary function test to confirm diagnosis which would require being seen by a primary care provider or potentially a social insurance analyst. Patient given referral to both. Advised patient to stop vaping as this may also increase her risk of lung disease. Discussed physical exam findings. Advised supportive measures and signs/symptoms to go to the ER. Pt is appropriate for outpt treatment and f/u. Differential Diagnosis Differential Diagnosis: Concern for asthma, asthma, chronic bronchitis, COPD, upper respiratory infe ction Vital Signs Vital Signs: Vital Signs Temperature 98.1 F 12/27/24 14:39 Pulse Rate 75 12/27/24 14:39 Respiratory Rate 18 12/27/24 14:39 Blood Pressure 128/69 12/27/24 14:39 Pulse Oximetry 99 12/27/24 14:39 Oxygen Delivery Room Air 12/27/24 14:39 Temperature 98.1 F 12/27/24 14:39 Pulse Rate 75 12/27/24 14:39 Respiratory Rate 18 12/27/24 14:39 Blood Pressure 128/69 12/27/24 14:39 Pulse Oximetry 99 12/27/24 14:39 Oxygen Delivery Room Air 12/27/24 14:39 Critical Care Time Critical Care Time Critical Care Time: No Discharge Plan Discharge Clinical Impression: Mold suspected exposure, Concerned about asthma without diagnosis Patient Disposition: Home Condition: Stable Instructions: How Your Lungs Work (ED), Electronic Cigarettes and Your Health (ED) Additional Instructions: Today there is no concerns for asthma. Your lungs are nice and clear. To confirm you will have asthma is recommended a pulmonary function test performed which is gold standard for diagnosis. This can be done through primary care provider or a social insurance analyst. Be given a referral to her primary care provider please contact in 3-5 days to schedule follow-up appointment. Customer Account Manager was provided for you as well however remain in referral from a primary care provider to see them. Please avoid the area with known mold exposure until has been taking care of. If you developed worsening chest pains, difficulty breathing, wheezing, cannot speak in full sentences, nausea, vomiting, fevers, cough, or any serious concerns please go to the ER immediately. Patient Language: Urdu Prescriptions: No Action buspirone 10 mg tablet escitalopram oxalate 20 mg tablet Follow-up/Referrals: Cynthia Cleaning MD [Physician, Pulmonology] - 3 Days Referral Note: Lung doctor Brad Cleaning MD [Physician, Family Practice] - 3 Days Referral Note: To get established PHYSICIAN,CLAIMS ASSOCIATE [Primary Care Provider, Internal Medicine] Time of Disposition: 14:54
== END 2024-12-27 15:02 | disposition home or self-care (01) ==
DX: Z77.120 Contact with and (suspected) exposure to mold (toxic) (principal); Z71.1 Person with feared health complaint in whom no diagnosis is made; F17.290 Nicotine dependence, other tobacco product, uncomplicated
CPT/HCPCS: 99211; G0463